=== PATIENT | male | born 1955 | race Caucasian/White ===

== ENCOUNTER → 2016-10-03 | Day surgery (SDC) | payer OTHER ==
[2016-10-01 10:13] VITALS: BMI 27.3
[~2016-10-03] MED LIST: ALPRAZolam 0.25 MG TAB ONE; ALPRAZolam 0.25 MG TAB PO PRN; ASPIRIN 325 MG TAB PO ONE; ASPIRIN 81 MG CHEW ONE; IODIXANOL 320 MG/ML 100 ML INTRAARTER ONE; LIDOCAINE 2% INJ 20 MG/ML SQ ONE; MIDAZOLAM 2 MG/2 ML VIAL IVP ONE; SODIUM CHLORIDE 0.9% 1,000 ML IV SCH; SODIUM CHLORIDE 0.9% 1,000 ML in EMPTY BAG 1 BAG IV ONE
[2016-10-03 08:26] LABS: Anisocytosis Slight; Basophils # (A) 0.1 k/uL (0-0.2); Basophils % (A) 1 %; CH 27.4; Eosinophils # (A) 0.3 k/uL (0-0.7); Eosinophils % (A) 3 %; HCT 46.3 % (39.0-53.0); HDW 2.87; HGB 15.1 gm/dL (13.0-17.5); Luc # (Auto) 0.12; Luc % (Auto) 2; Lymphocytes # (A) 2.5 k/uL (1.0-4.8); Lymphocytes % (A) 32 %; MCH 27.2 pg (25.0-35.0); MCHC 32.7 g/dL (31.0-37.0); MCV 83.4 fL (80.0-100.0); Mean Platelet Volume 7.4; Monocytes # (A) 0.4 k/uL (0-1.0); Monocytes % (A) 5 %; Neutrophils # (A) 4.5 k/uL (1.3-7.7); Neutrophils % (A) 57 %; RBC 5.56 m/uL (4.30-5.90); RDW 17.6 % (11.5-15.5); WBC 7.8 k/uL (3.8-10.6); WBC (Perox) 7.98
[2016-10-03 08:29] VITALS: RESP 18
[2016-10-03 09:34] LABS: Anion Gap 7 mmol/L; Blood Urea Nitrogen 21 mg/dL (9-20); Calcium 8.9 mg/dL (8.4-10.2); Carbon Dioxide 29 mmol/L (22-30); Chloride 107 mmol/L (98-107); Glucose 100 mg/dL (74-99); Non-African American GFR(MDRD) >60 (>60 ml/min/1.73 sqM); Potassium 3.9 mmol/L (3.5-5.1); Sodium 143 mmol/L (137-145)
[2016-10-03] MEDS: VERAPAMIL SYRINGE (5 MG/10 ML) INTRAARTER ONE ×2 (10:18→10:32)
--- NOTE | 2016-10-03 11:44 | IR ---
Fluoroscopy HISTORY: Pain 2.2 minutes fluoroscopy time supplied to the referring clinician. 136 intraoperative C-arm images do cument the procedure. See dictated report from cardiology.
[2016-10-03 12:30] VITALS: TEMP 98
[2016-10-03 15:36] VITALS: PULSE 64
[2016-10-03 16:30] VITALS: BP 124/75
--- NOTE | 2016-10-04 10:30 | PCN ---
DATE OF PROCEDURE: 10/03/2016 Performing physician: Aleksandr Roberts M.D., coding technician. PROCEDURE PERFORMED: 1. An abdominal aortogram. 2. Right lower extremity runoff. INDICATION: This is a pleasant 60-year-old gentleman who sees Dr. Tyson as an outpatient, who is known to have severe underlying PAD who underwent multiple angioplasty in the past. He was experiencing critical limb ischemia with resting pain of the right leg. He is known to have left [id number] amputation secondary to severe peripheral arterial disease. I was asked to perform the peripheral angiogram by Dr. Tyson. Approach: Right radial artery. COMPLICATIONS: None. Level of sedation: Moderate. PROCEDURE DESCRIPTION: After obtaining an informed consent, the patient was brought to the cardiac cardiac cath lab manager. Right radial artery was cannulated using micropuncture technique. The micropuncture wire passed easily, then I placed 6 Welsh sheath in the right radial artery. Subsequently, I did give the patient 2 mg of verapamil IA and 3000 units of heparin IV. After that, I did an abdominal aortogram and right lower extremity runoff using 5 Welsh pigtail catheter which was initially placed at the level of the renal arteries and it was advanced into above the bifurcation of the aorta to right and left common iliac arteries. The procedure was completed without any complication. SELECTIVE PERIPHERAL ANGIOGRAM: 1. The abdominal aorta appeared to have mild disease only. 2. The common iliac arteries: Right common iliac artery appeared to be aneurysmal with severe disease about 70% to 80%. The left common iliac artery appeared to be angiographically normal. 3. The external arteries: The right external iliac artery appeared to have mild disease only and the left external iliac artery appeared to have mild disease only as well. 4. The internal iliac arteries: The right and left internal iliac arteries seems to be patent. 5. Common femoral arteries: The right common femoral artery appeared to have mild disease only and the left common femoral artery appeared to be occluded. 6. SFA: The right SFA seems to have severe lesion in the midportion. Then the right SFA is totally occluded distally by the canal jinny on a short segment. 7. Popliteal: The right popliteal appeared to have mild to moderate diffuse disease. 8. Below the knee: There are 3 vessels runoff below the knee bilaterally. CONCLUSION: 1. Critical limb ischemia involving the right leg. 2. Known left pvbig-hjd-[id number] amputation secondary to severe underlying peripheral arterial disease. 3. Critical disease involving the ostial right common iliac artery with aneurysmal formation there as well. 4. Total occlusion of the distal right superficial femoral artery on a short segment. 5. Three vessel runoff below the knee on the right side. POSTPROCEDURE MANAGEMENT: The patient will be scheduled to undergo balloon angioplasty and stenting of the right iliac as well as balloon angioplasty of the right SFA.
== END ==
LOC: CATHCVL 07:57
PROVIDERS: ATTEND Internal Medicine Interventional Cardiology
DX: I73.9 Peripheral vascular disease, unspecified (principal); I70.92 Chronic total occlusion of artery of the extremities; I99.8 Other disorder of circulatory system; I72.3 Aneurysm of iliac artery; Z89.512 Acquired absence of left leg below knee; L97.519 Non-pressure chronic ulcer of other part of right foot with unspecified severity; Z82.49 Family history of ischemic heart disease and other diseases of the circulatory system; F17.210 Nicotine dependence, cigarettes, uncomplicated; Z79.1 Long term (current) use of non-steroidal anti-inflammatories (NSAID); Z79.82 Long term (current) use of aspirin; Z79.891 Long term (current) use of opiate analgesic; Z79.899 Other long term (current) drug therapy
CPT/HCPCS: 36200; 75625; 75716; 80048; 85025; 99156; C1769 ×2; C1894; J2001; J2250; Q9967

== ENCOUNTER 2016-10-17 06:29 | Day surgery (SDC) | payer OTHER ==
[~2016-10-17 06:29] MED LIST changes: -ALPRAZolam 0.25 MG TAB ONE; -ALPRAZolam 0.25 MG TAB PO PRN; -ASPIRIN 325 MG TAB PO ONE; +ASPIRIN 325 MG TAB PO SCH; -ASPIRIN 81 MG CHEW ONE; -IODIXANOL 320 MG/ML 100 ML INTRAARTER ONE; -LIDOCAINE 2% INJ 20 MG/ML SQ ONE; -MIDAZOLAM 2 MG/2 ML VIAL IVP ONE; -SODIUM CHLORIDE 0.9% 1,000 ML IV SCH
[2016-10-17] MEDS ORDERED: ALPRAZolam 0.25 MG TAB PO STA (07:09)
[2016-10-17] MEDS ORDERED: SODIUM CHLORIDE 0.9% 1,000 ML IV ONE (07:22)
[2016-10-17] MEDS ORDERED: MIDAZOLAM 2 MG/2 ML VIAL IV ONE ×3 (08:25→09:21)
[2016-10-17] MEDS ORDERED: LIDOCAINE 2% INJ 20 MG/ML SQ ONE ×2 (08:34)
[2016-10-17] MEDS ORDERED: HYDROmorphone 2 MG/ML 1 ML SYRINGE IV ONE (08:39)
[2016-10-17] MEDS ORDERED: HEPARIN SODIUM 1,000 UNIT/ML VIAL IV ONE ×2 (08:53→08:55)
[2016-10-17] MEDS: NITROGLYCERIN 1000MCG/10ML SYRINGE INTRAARTER ONE ×3 (09:27→10:05)
[2016-10-17] MEDS: niCARdipine Syringe (1,000 mcg/10 mL) INTRACORON ONE ×2 (09:28→10:04)
[2016-10-17] MEDS ORDERED: CLOPIDOGREL 75 MG TAB PO ONE (09:43)
[2016-10-17] MEDS ORDERED: IODIXANOL 320 MG/ML 100 ML INTRAARTER ONE (10:07)
[2016-10-17] MEDS ORDERED: IBUPROFEN 800 MG TAB PO PRN (10:21)
[2016-10-17] MEDS ORDERED: methylPREDNISolone 4 MG TAB TAPER PO SCH (10:30)
[2016-10-17] MEDS ORDERED: SODIUM CHLORIDE 0.9% 1,000 ML IV SCH (10:30)
[2016-10-17] MEDS: MORPHINE SULFATE IR 15 MG TABLET PO PRN ×2 (11:10→18:57)
[2016-10-17] MEDS ORDERED: MORPHINE SULFATE ER 30 MG TABLET PO STA (16:07)
[2016-10-17 18:21] VITALS: BMI 30.7
[2016-10-17] MEDS: GABAPENTIN 400 MG CAP PO SCH (20:43)
--- NOTE | 2016-10-17 20:46 | PCN ---
DATE OF PROCEDURE: October 17, 2016. PERFORMING PHYSICIAN: Aleksandr Roberts M.D., frame table operator helper. PROCEDURE PERFORMED: 1. Selective right [id number]-[id number] angiogram. 2. Selective right popliteal angiogram. 3. Selective right SFA angiogram. 4. An atherectomy of the right superficial femoral artery using the TurboHawk device with extraction of large plaque burden. 5. Successful stenting of the distal right SFA using 6.0 x 120 mm ( ) PTX drug-coated stent with a good angiographic results. 6. Successful balloon angioplasty of the proximal SFA using 6.0 x 80 mm drug-coated balloon with good angiographic results. INDICATION: This is a pleasant 60-year-old gentleman who was seen and evaluated by Dr. Tyson for what seems to be critical limb ischemia and resting pain involving the right foot. He underwent a peripheral angiogram a few weeks ago and that showed occluded right distal SFA with severe disease involving the proximal right SFA and severe disease involving the right iliac artery. He was brought today to undergo balloon angioplasty of the right SFA. APPROACH: Right common femoral artery in antegrade fashion. COMPLICATIONS: None. Level of sedation: Moderate. PROCEDURE DESCRIPTION: After obtaining informed consent, the patient was brought to the cardiac construction laborer. The right common femoral artery was cannulated using micropuncture technique under ultrasound guidance. The micropuncture wire was positioned towards the right profunda. At that point, I put a 6 Uzbek sheath in the right common femoral artery. Then I did advance an 0.018 Victory 18 wire toward the right SFA and after that, I did exchange my 018 wire into 0.035 wire using an 0.035 QuickCross catheter. Then I directed my sheath towards the right SFA. At that point, anticoagulation was initiated using heparin and the patient was given 8000 units of heparin IV. Subsequently, I did selective right SFA angiogram. I did selective right popliteal angiogram as well. Subsequently, I did cross the chronic total occlusion of the right SFA using an 0.014 Astato wire with the back-up support of 0.014 CXI catheter. I did prove that I was in the true lumen by injecting contrast in the right popliteal. At that point, I did advance 014 Ironman through the 0.014 CXI catheter. I did multiple runs of directional atherectomy using the TurboHawk hock device and I was able to extract large plaque burden. After that, I did balloon the right SFA using 40 x 150 mm balloon which was inflated under 12 atmospheres for one minute. After that, I did stent the right distal SFA using 6.0 x 120 mm ( ) PTX stent, where the stent was positioned under fluoroscopy guidance and it was deployed. After that, I did balloon angioplasty on the mid right SFA just proximal to stent using 5.0 x 150 mm balloon which was inflated under its nominal pressure where I did inflate the balloon inside the stent and proximal to the stented segment. The following angiogram showed good angiographic results. For the lesion in the proximal right SFA, I did again atherectomy using the TurboHawk hock device. Then I did inflate 6.0 x 80 mm drug-coated balloon, where the balloon was inflated under its nominal pressure for 3 minutes. The following angiogram showed good angiographic results. I did selective right below the knee angiogram just to make sure there is 3 vessel runoff and no distal embolization. POSTPROCEDURE MANAGEMENT: 1. Dual antiplatelet therapy. 2. Risk factor modifications. 3. Follow up with the patient.
[2016-10-17] MEDS ORDERED: MORPHINE SULFATE ER 30 MG TABLET PO SCH (21:00)
[2016-10-17] MEDS ORDERED: ATORVASTATIN 80 MG TAB PO SCH (21:00)
[2016-10-17] MEDS: LORazepam 1 MG TAB PO PRN (23:24)
[2016-10-18] MEDS: MORPHINE SULFATE IR 15 MG TABLET PO PRN ×2 (01:05→06:36)
[2016-10-18] MEDS: GABAPENTIN 400 MG CAP PO SCH ×2 (04:05→07:59)
[2016-10-18 07:10] LABS: Anisocytosis Slight; Basophils # (A) 0.1 k/uL (0-0.2); Basophils % (A) 1 %; CH 27.4; CHCM 31.8; Eosinophils # (A) 0.2 k/uL (0-0.7); Eosinophils % (A) 3 %; HCT 45.7 % (39.0-53.0); HGB 14.3 gm/dL (13.0-17.5); Hypochromasia Slight; Luc # (Auto) 0.08; Luc % (Auto) 1; Lymphocytes # (A) 1.2 k/uL (1.0-4.8); Lymphocytes % (A) 20 %; MCH 27.1 pg (25.0-35.0); MCHC 31.3 g/dL (31.0-37.0); MCV 86.6 fL (80.0-100.0); Mean Platelet Volume 8.8; Monocytes # (A) 0.4 k/uL (0-1.0); Monocytes % (A) 7 %; Neutrophils # (A) 3.9 k/uL (1.3-7.7); Neutrophils % (A) 68 %; RBC 5.27 m/uL (4.30-5.90); RDW 16.9 % (11.5-15.5); WBC 5.8 k/uL (3.8-10.6); WBC (Perox) 5.82
[2016-10-18 07:14] LABS: Anion Gap 8 mmol/L; Blood Urea Nitrogen 14 mg/dL (9-20); Calcium 8.8 mg/dL (8.4-10.2); Carbon Dioxide 28 mmol/L (22-30); Chloride 106 mmol/L (98-107); Glucose 86 mg/dL (74-99); Non-African American GFR(MDRD) >60 (>60 ml/min/1.73 sqM); Potassium 4.4 mmol/L (3.5-5.1); Sodium 142 mmol/L (137-145)
[2016-10-18 07:53] VITALS: BP 115/76; PULSE 71; RESP 20; TEMP 97.7
[2016-10-18] MEDS: LORazepam 1 MG TAB PO PRN (08:07)
[2016-10-18] MEDS ORDERED: NON-FORMULARY DRUG (Vortioxetine Hydrobromide [Trintellix] 10 MG) PO SCH (09:00)
[2016-10-18] MEDS ORDERED: MORPHINE SULFATE ER 30 MG TABLET PO SCH (09:00)
[2016-10-18] MEDS ORDERED: ASPIRIN 81 MG CHEW PO SCH (09:00)
[2016-10-18] MEDS ORDERED: CLOPIDOGREL 75 MG TAB PO SCH (09:00)
--- NOTE | 2016-10-18 18:55 | DS ---
DATE OF ADMISSION: 10/17/2016 DATE OF DISCHARGE: 10/18/2016 BRIEF HISTORY: This is a pleasant 60-year-old gentleman who was admitted to the hospital yesterday and underwent successful crossing chronic total occlusion of the right superficial femoral artery along with successful balloon angioplasty and stenting of the right SFA with a good angiographic result and without any complication. The procedure was performed from the right groin in antegrade technique. The right groin is soft and nontender and without any bruises. The patient is going to be discharged home on dual antiplatelet therapy as well as on statin. I will follow up with the patient early next week in the office, where he requires to have stenting of the right iliac arteries.
--- NOTE | 2016-10-20 12:30 | IR ---
EXAMINATION TYPE: IR stent intravas non coronary DATE OF EXAM: 10/17/2016 11:32 AM COMPARISON: NONE HISTORY: Peripheral vascular occlusive disease. Fluoroscopy was applied to the referring clinician. See dictated report from cardiology.
== END 2016-10-18 11:21 | disposition home or self-care (01) ==
LOC: CATHCVL 06:29 → 6SEL 17:23 → CATHCVL 10-18 11:21
PROVIDERS: ATTEND Internal Medicine Interventional Cardiology
DX: I70.235 Atherosclerosis of native arteries of right leg with ulceration of other part of foot (principal); I70.92 Chronic total occlusion of artery of the extremities; E66.3 Overweight; Z68.27 Body mass index [BMI] 27.0-27.9, adult; F17.210 Nicotine dependence, cigarettes, uncomplicated; Z89.612 Acquired absence of left leg above knee; Z79.1 Long term (current) use of non-steroidal anti-inflammatories (NSAID); Z79.82 Long term (current) use of aspirin; Z79.899 Other long term (current) drug therapy; Z82.49 Family history of ischemic heart disease and other diseases of the circulatory system
CPT/HCPCS: 99156; 99157 ×5; 37227; 85347; 80048; 85025; C1894 ×3; C1769 ×8; C1887; C1725 ×2; C1714; C2623; C1874; J2001; J2250; J1170; Q9967; J1644; J7509

== ENCOUNTER → 2016-10-27 | Outpatient (CLI) | payer OTHER ==
--- NOTE | 2016-10-27 09:55 | MR ---
EXAMINATION TYPE: MR cervical spine wo con DATE OF EXAM: 10/27/2016 9:43 AM COMPARISON: NONE HISTORY: Cervicalgia, neck and shoulder pain TECHNIQUE: Multiplanar, multisequence images of the cervical spine were acquired. C2-C3: No evidence for degenerative disc disease. No disc bulge/herniation or protrusion. No Canal stenosis. Foramina are patent bilaterally. C3-C4: Facet arthropathy and uncovertebral joint hypertrophy. Mild bilateral foraminal stenosis. No C anal stenosis. C4-C5: Mild degenerative disc disease and bilateral uncovertebral joint hypertrophy with facet arthro robb. No disc herniation or canal stenosis. C5-C6: Severe degenerative disc disease with central disc herniation. There is bilateral uncovertebra l joint hypertrophy and moderate to severe bilateral foraminal encroachment and significant AP canal stenosis. C6-C7: Severe degenerative disc disease with broad-based disc protrusion, uncovertebral joint hypertr ophy hypertrophy with moderate canal stenosis and severe bilateral foraminal encroachment. C7-T1: No evidence for degenerative disc disease. No disc bulge/herniation or protrusion. No Canal stenosis. Foramina are patent bilaterally. Cervical segments are intact. There is normal alignment. Cervical spinal cord is of normal signal. Craniovertebral junction relationships are within normal limits. IMPRESSION: 1. Large central disc herniation with severe degenerative disc disease C5-C6 resulting in spinal cord compression and bilateral significant foraminal encroachment. 2. Severe degenerative disc disease C6-C7 with broad-based disc protrusion, severe bilateral foramina l encroachment and moderate canal stenosis.
== END | disposition home or self-care (01) ==
LOC: RADMRIMAIN 08:49
PROVIDERS: ATTEND Psychiatry & Neurology Neurology
DX: M48.02 Spinal stenosis, cervical region (principal); M50.222 Other cervical disc displacement at C5-C6 level; M50.322 Other cervical disc degeneration at C5-C6 level
CPT/HCPCS: 72141

== ENCOUNTER 2016-11-12 11:35 | Emergency (ER) | payer OTHER ==
[2016-11-12] MEDS ORDERED: SODIUM CHLORIDE 0.9% 1,000 ML IV STA (11:44)
--- NOTE | 2016-11-12 11:48 | ED ---
General Adult HPI - General Source: RN notes reviewed <Luca Pierson - Last Filed: 11/12/16 14:54> <Roney Roth - Last Filed: 11/12/16 22:43> - General Stated complaint: ETOH Time Seen by Provider: 11/12/16 11:35 - History of Present Illness Initial comments: This is a 61-year-old male who presents to the emergency department because his girlfriend called EMS because he had been drinking and he also had taken some Ativan and morphine he does not know how many. Patient states he was not suicidal he states he took them because he wanted to get some sleep. Patient states he does not know how many he took. Patient is alert and oriented 3 though he is obviously intoxicated. Patient denies any physical complaints today. Patient states he did fall earlier but did not hurt himself. Patient states he didn't hit his head did not hurt his neck and has no complaints from the fall. Patient denies any headache currently patient denies any numbness weakness. Patient denies chest pain palpitations difficulty breathing shortness of breath per patient denies abdominal pain patient denies nausea vomiting or diarrhea. (Luca Pierson) - Related Data Home Medications Medication Instructions Recorded Confirmed Aspirin 81 mg PO DAILY 09/18/16 11/12/16 Gabapentin 800 mg PO QID 09/18/16 11/12/16 LORazepam [Ativan] 1 mg PO BID PRN 09/18/16 11/12/16 Morphine Sulfate Ir [MSIR] 15 mg PO DAILY PRN 10/03/16 11/12/16 Morphine Sulfate [Ms Contin] 30 mg PO Q12HR 10/03/16 11/12/16 Vortioxetine Hydrobromide 10 mg PO DAILY 10/13/16 11/12/16 [Trintellix] PARoxetine [Paxil] 20 mg PO DAILY 11/12/16 11/12/16 Previous Rx's Medication Instructions Recorded Atorvastatin [Lipitor] 80 mg PO HS #90 tab 10/18/16 Clopidogrel [Plavix] 75 mg PO DAILY #90 tab 10/18/16 Allergies Allergy/AdvReac Type Severity Reaction Status Date / Time No Known Allergies Allergy Verified 11/11/16 10:05 Review of Systems ROS Other: All systems not noted in ROS Statement are negative. <Luca Pierson - Last Filed: 11/12/16 14:54> ROS Other: All systems not noted in ROS Statement are negative. <Roney Roth - Last Filed: 11/12/16 22:43> ROS Statement: Those systems with pertinent positive or pertinent negative responses have been documented in the HPI. Past Medical History Past Medical History: Chest Pain / Angina, Deep Vein Thrombosis (DVT), Eye Disorder, GI Bleed, Hypertension, Pulmonary Embolus (PE), Skin Disorder, Vascular Disorder Additional Past Medical History / Comment(s): HX OF CHEST PAIN X1 R/T ANXIETY ATTACK. "HX BLOOD CLOT RT SHOULDER." HX GASTRIC ULCERS. C6-7 "SQUEEZED TOGETHER." LESION ON FOREHEAD. PE 02/2016. LT LEG ABOVE KNEE AMPUTATION, STILL HAS WOUND HEALING, PAIN IN LEFT STUMP; RT FOOT N/T. USES WHEELCHAIR TO AMBULATE History of Any Multi-Drug Resistant Organisms: MRSA Date of last positivie culture/infection: 2015 MDRO Source:: LEFT LEG WOUND Additional Past Surgical History / Comment(s): LT LEG BYPASS 09/2015; LT LEG ABOVE KNEE AMPUTATION 01/2016; SEVERAL DEBRIDEMENTS. Facial Surgery. RIGHT SFA ANGIOPLASTY WITH STENT 10/17/16 Past Anesthesia/Blood Transfusion Reactions: No Reported Reaction Past Psychological History: Anxiety, Depression, Panic Disorder Additional Psychological History / Comment(s): "SITUATIONAL" DEPRESSION. "GETS PANICKY WHEN OUT OF HOUSE." Smoking Status: Current every day smoker Past Alcohol Use History: None Reported, Rare Additional Past Alcohol Use History / Comment(s): SMOKES 1 1/2 PPD, X45 YEARS. Past Drug Use History: None Reported - Past Family History Mother Family Medical History: Cancer Additional Family Medical History / Comment(s): POSS CA, HAD HYSTERECTOMY, UNSURE D/T HER SCHIZOPHRENIA. <Luca Pierson - Last Filed: 11/12/16 14:54> General Exam <Luca Pierson - Last Filed: 11/12/16 14:54> <Roney Roth - Last Filed: 11/12/16 22:43> - General Exam Comments Initial Comments: GENERAL: Patient is well-developed and well-nourished. Patient is nontoxic and well- hydrated and is in mild distress. ENT: Neck is soft and supple. No significant lymphadenopathy is noted. Oropharynx is clear. Moist mucous membranes. Neck has full range of motion without eliciting any pain. EYES: The sclera were anicteric and conjunctiva were pink and moist. Extraocular movements were intact and pupils were equal round and reactive to light. Eyelids were unremarkable. PULMONARY: Unlabored respirations. Good breath sounds bilaterally. No audible rales rhonchi or wheezing was noted. CARDIOVASCULAR: There is a regular rate and rhythm without any murmurs gallops or rubs. ABDOMEN: Soft and nontender with normal bowel sounds. No palpable organomegaly was noted. There is no palpable pulsatile mass. SKIN: Skin is clear with no lesions or rashes and otherwise unremarkable. NEUROLOGIC: Patient is alert and oriented x3. Cranial nerves II through XII are grossly intact. Motor and sensory are also intact. Normal speech, volume and content. Symmetrical smile. 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 Normal extremities with adequate strength and full range of motion. No lower extremity swelling or edema. No calf tenderness. LYMPHATICS: No significant lymphadenopathy is noted PSYCHIATRIC: Patient is intoxicated but does deny suicidal ideations. (Luca Pierson) Medical Decision Making - Lab Data Result diagrams: 11/12/16 12:09 11/12/16 12:09 <Luca Pierson - Last Filed: 11/12/16 14:54> - Lab Data Result diagrams: 11/12/16 12:09 11/12/16 12:09 <Roney Roth - Last Filed: 11/12/16 22:43> - Medical Decision Making EKG shows normal sinus rhythm at 80 bpm WV interval is 148 QRS is 110 QT interval 422 QTC is 486. Patient's EKG shows T-wave inversions in leads [address] Pierce take over the care of this patient 5 PM (Luca Pierson) - Lab Data Lab Results 11/12/16 11/12/16 Range/Units 12:09 12:09 WBC 7.2 (3.8-10.6) k/uL RBC 5.85 (4.30-5.90) m/uL Hgb 16.0 (13.0-17.5) gm/dL Hct 49.6 (39.0-53.0) % MCV 84.8 (80.0-100.0) fL MCH 27.4 (25.0-35.0) pg MCHC 32.3 (31.0-37.0) g/dL RDW 16.6 H (11.5-15.5) % Plt Count 282 (150-450) k/uL Neutrophils % 59 % Lymphocytes % 32 % Monocytes % 4 % Eosinophils % 2 % Basophils % 1 % Neutrophils # 4.3 (1.3-7.7) k/uL Lymphocytes # 2.3 (1.0-4.8) k/uL Monocytes # 0.3 (0-1.0) k/uL Eosinophils # 0.2 (0-0.7) k/uL Basophils # 0.1 (0-0.2) k/uL Hypochromasia Slight Anisocytosis Slight Sodium 149 H (137-145) mmol/L Potassium 3.5 (3.5-5.1) mmol/L Chloride 110 H (98-107) mmol/L Carbon Dioxide 23 (22-30) mmol/L Anion Gap 16 mmol/L BUN 6 L (9-20) mg/dL Creatinine 0.52 L (0.66-1.25) mg/dL Est GFR (MDRD) Af Amer >60 (>60 ml/min/1.73 sqM) Est GFR (MDRD) Non-Af >60 (>60 ml/min/1.73 sqM) Glucose 86 (74-99) mg/dL Calcium 9.0 (8.4-10.2) mg/dL Total Bilirubin 0.8 (0.2-1.3) mg/dL AST 23 (17-59) U/L ALT 26 (21-72) U/L Alkaline Phosphatase 168 H (38-126) U/L Total Protein 7.3 (6.3-8.2) g/dL Albumin 3.9 (3.5-5.0) g/dL Salicylates <1.0 mg/dL Acetaminophen <10.0 ug/mL Serum Alcohol 243 mg/dL Disposition <Luca Pierson - Last Filed: 11/12/16 14:54> <Roney Roth - Last Filed: 11/12/16 22:43> Clinical Impression: Alcoholic intoxication Disposition: HOME SELF-CARE Condition: Fair Instructions: Alcohol Intoxication (ED) Additional Instructions: Do not drink any alcohol while taking your prescription medications, this combination can be very dangerous, leading to possible permanent disability or . Referrals: Ayden Rosenthal MD [Primary Care Provider] - 1-2 days
[2016-11-12 12:28] LABS: Anisocytosis Slight; Basophils # (A) 0.1 k/uL (0-0.2); Basophils % (A) 1 %; CH 27.6; CHCM 32.8; Eosinophils # (A) 0.2 k/uL (0-0.7); Eosinophils % (A) 2 %; HCT 49.6 % (39.0-53.0); HDW 3.24; Hypochromasia Slight; Luc # (Auto) 0.13; Luc % (Auto) 2; Lymphocytes # (A) 2.3 k/uL (1.0-4.8); Lymphocytes % (A) 32 %; MCH 27.4 pg (25.0-35.0); MCHC 32.3 g/dL (31.0-37.0); MCV 84.8 fL (80.0-100.0); Mean Platelet Volume 7.8; Monocytes # (A) 0.3 k/uL (0-1.0); Monocytes % (A) 4 %; Neutrophils # (A) 4.3 k/uL (1.3-7.7); Neutrophils % (A) 59 %; RBC 5.85 m/uL (4.30-5.90); RDW 16.6 % (11.5-15.5); WBC 7.2 k/uL (3.8-10.6); WBC (Perox) 7.25
[2016-11-12 12:32] LABS: ALT 26 U/L (21-72); AST 23 U/L (17-59); Acetaminophen <10.0 ug/mL; Alkaline Phosphatase 168 U/L (38-126); Anion Gap 16 mmol/L; Blood Urea Nitrogen 6 mg/dL (9-20); Carbon Dioxide 23 mmol/L (22-30); Chloride 110 mmol/L (98-107); Glucose 86 mg/dL (74-99); Non-African American GFR(MDRD) >60 (>60 ml/min/1.73 sqM); Potassium 3.5 mmol/L (3.5-5.1); Salicylate <1.0 mg/dL; Sodium 149 mmol/L (137-145); Total Bilirubin 0.8 mg/dL (0.2-1.3); Total Protein 7.3 g/dL (6.3-8.2)
[2016-11-12 12:37] LABS: Alcohol 243 mg/dL
[2016-11-12] MEDS ORDERED: LORazepam 2 MG/ML SYRINGE IV STA (13:48)
[2016-11-12] MEDS ORDERED: KETOROLAC 30 MG/ML 1 ML VIAL IVP STA (15:25)
[2016-11-12 22:34] VITALS: RESP 18
[2016-11-12] MEDS ORDERED: HYDROcodone/APAP 5-325MG 1 EACH TAB PO STA (22:35)
[2016-11-13 00:31] VITALS: BP 164/93; PULSE 82; TEMP 98.2
== END 2016-11-13 00:15 | disposition home or self-care (01) ==
LOC: EC 11:35
DX: F10.129 Alcohol abuse with intoxication, unspecified (principal); Z79.82 Long term (current) use of aspirin; Z79.899 Other long term (current) drug therapy; Z79.02 Long term (current) use of antithrombotics/antiplatelets; Z86.718 Personal history of other venous thrombosis and embolism; F41.9 Anxiety disorder, unspecified; F32.9 Major depressive disorder, single episode, unspecified; F41.0 Panic disorder [episodic paroxysmal anxiety]; F17.200 Nicotine dependence, unspecified, uncomplicated; Z86.711 Personal history of pulmonary embolism
CPT/HCPCS: 82075; 36415; 93005; 80053; 85025; 83520 ×2; 80320; 96374; 96361 ×6; 99284; J1885

== ENCOUNTER 2017-01-28 12:43 | Day surgery (SDC) | payer OTHER ==
[2017-01-27 08:38] VITALS: BMI 27.6
[~2017-01-28 12:43] MED LIST changes: +ALPRAZolam 0.25 MG TAB PO PRN; +ALPRAZolam 0.5 MG TAB PO PRN; -ASPIRIN 325 MG TAB PO SCH; +ASPIRIN 325 MG TAB PO STA
[2017-01-28] MEDS ORDERED: ALPRAZolam 0.25 MG TAB ONE (13:32)
[2017-01-28] MEDS ORDERED: ASPIRIN 81 MG CHEW ONE (13:32)
[2017-01-28] MEDS ORDERED: CLOPIDOGREL 75 MG TAB ONE (13:35)
[2017-01-28] MEDS ORDERED: SODIUM CHLORIDE 0.9% 1,000 ML IV ONE (13:45)
[2017-01-28 13:57] LABS: Anion Gap 14 mmol/L; Blood Urea Nitrogen 16 mg/dL (9-20); Carbon Dioxide 19 mmol/L (22-30); Chloride 110 mmol/L (98-107); Glucose 94 mg/dL (74-99); Non-African American GFR(MDRD) >60 (>60 ml/min/1.73 sqM); Potassium 5.2 mmol/L (3.5-5.1); Sodium 143 mmol/L (137-145)
[2017-01-28 13:58] LABS: Anisocytosis Slight; Basophils # (A) 0.1 k/uL (0-0.2); Basophils % (A) 1 %; CH 28.1; CHCM 33.1; Eosinophils # (A) 0.2 k/uL (0-0.7); Eosinophils % (A) 2 %; HCT 51.6 % (39.0-53.0); HDW 2.91; Luc # (Auto) 0.16; Luc % (Auto) 2; Lymphocytes # (A) 2.7 k/uL (1.0-4.8); Lymphocytes % (A) 29 %; MCH 28.1 pg (25.0-35.0); MCHC 32.9 g/dL (31.0-37.0); MCV 85.3 fL (80.0-100.0); Mean Platelet Volume 8.2; Monocytes # (A) 0.5 k/uL (0-1.0); Monocytes % (A) 5 %; Neutrophils # (A) 5.8 k/uL (1.3-7.7); Neutrophils % (A) 61 %; RBC 6.05 m/uL (4.30-5.90); WBC 9.5 k/uL (3.8-10.6); WBC (Perox) 9.62
[2017-01-28] MEDS ORDERED: HYDROmorphone 1 MG/ML 1 ML SYRINGE IVP STA ×2 (15:29→21:55)
[2017-01-28] MEDS ORDERED: HYDROmorphone 1 MG/ML 1 ML SYRINGE ONE (15:31)
[2017-01-28] MEDS ORDERED: niCARdipine 25 MG/10 ML VIAL ONE (18:33)
[2017-01-28] MEDS: MIDAZOLAM 2 MG/2 ML VIAL IVP ONE ×2 (18:39→18:51)
[2017-01-28] MEDS ORDERED: fentaNYL (PF) 50 MCG/ML 2 ML AMP IV ONE (18:39)
[2017-01-28] MEDS ORDERED: LIDOCAINE 2% INJ 20 MG/ML SQ ONE (18:40)
[2017-01-28] MEDS ORDERED: HEPARIN SODIUM 1,000 UNIT/ML VIAL IV ONE (18:46)
[2017-01-28] MEDS ORDERED: IODIXANOL 320 MG/ML 100 ML INTRAARTER ONE (19:09)
[2017-01-28] MEDS ORDERED: SODIUM CHLORIDE 0.9% 1,000 ML IV SCH (19:15)
[2017-01-28 20:02] VITALS: RESP 18
--- NOTE | 2017-01-28 20:38 | PCN ---
DATE OF PROCEDURE: January 28, 2017 Performing physician: Aleksandr Roberts M.D., tea leaf reader. PROCEDURE PERFORMED: 1. Selective right common iliac artery angiogram. 2. Selective right common femoral artery angiogram. 3. Successful stenting of the right common iliac artery using 9.0 by 59 mm iCAST covered stent with a good angiographic results. INDICATION: This is a pleasant 61-year-old gentleman who is known to have CAD and known severe disease and aneurysmal right common iliac artery. He was brought today to undergo stenting of that lesion. Approach: Right common femoral artery. COMPLICATIONS: None. Level of sedation: Moderate with a sedation length of ( ) minutes. PROCEDURE DESCRIPTION: After obtaining an informed consent, the patient was brought to the cardiac lab aide. Right common femoral artery was cannulated using micropuncture technique. The micropuncture wire passed easily, then I placed initially a 6 Guamanian 23 cm Brite tip sheath in the right common femoral artery. Subsequently and after I did multiple selective images of the right common iliac artery I decided to upgrade to 7 Guamanian preparing to use a covered stent. Anticoagulation was initiated using heparin and the patient was given a total of 8000 units of heparin IV. After that, I did exchange my 23 cm Brite tip 6 Guamanian sheath into 23 cm Brite tip 7 Guamanian sheath over the advantage wire. Subsequently, I did direct stenting on the lesion using a 9.0 x 59 mm iCAST covered stent, where the stent was positioned under fluoroscopy guidance and deployed under 12 atmospheres for 20 seconds. The following angiogram showed good angiographic results with good isolation of the aneurysm and no flow to the aneurysm. The procedure was completed without any complication. POSTPROCEDURE MANAGEMENT: 1. Dual antiplatelet therapy. 2. Risk factor modifications. 3. Follow up with the patient.
--- NOTE | 2017-01-28 20:49 | LTR ---
January 28, 2017 RE: Nav Ledbetter Dear Ayden: Mr. Nav Ledbetter underwent successful stenting of the right common iliac artery with a good angiographic result and without any complication. I want to thank you for allowing us to participate in his care. Please do not hesitate to call if you have any questions or concerns. Sincerely, ALEXIA MARTELL MD
[2017-01-28] MEDS: LORazepam 1 MG TAB PO SCH (21:42)
[2017-01-28] MEDS: GABAPENTIN 400 MG CAP PO SCH (21:43)
[2017-01-28] MEDS: IBUPROFEN 800 MG TAB PO SCH (21:43)
[2017-01-28] MEDS ORDERED: ATROPINE SULFATE 0.1 MG/ML 10ML SYRINGE ONE (22:20)
[2017-01-29 06:45] LABS: Non-African American GFR(MDRD) >60 (>60 ml/min/1.73 sqM)
[2017-01-29] MEDS: GABAPENTIN 400 MG CAP PO SCH (08:16)
[2017-01-29] MEDS: IBUPROFEN 800 MG TAB PO SCH (08:17)
[2017-01-29] MEDS: LORazepam 1 MG TAB PO SCH (08:27)
[2017-01-29] MEDS ORDERED: VILAZODONE HYDROCHLORIDE 20 MG PO SCH (09:00)
[2017-01-29] MEDS ORDERED: ATORVASTATIN 40 MG TAB PO SCH (09:00)
[2017-01-29] MEDS ORDERED: CLOPIDOGREL 75 MG TAB PO SCH (09:00)
[2017-01-29] MEDS ORDERED: ASPIRIN 81 MG CHEW PO SCH (09:00)
--- NOTE | 2017-01-29 09:07 | DS ---
DATE OF ADMISSION: 01/28/2017 DATE OF DISCHARGE: 01/29/2017 BRIEF HISTORY: This is a pleasant 61-year-old gentleman who was admitted to the hospital yesterday and underwent successful stenting of the right common iliac artery for severe disease involving the right common iliac artery as well as large aneurysm as well. I performed the procedure using iCAST covered stent with a good angiographic result and without any complication. The procedure was performed from the right groin which is soft and nontender. The patient is going to be discharged home on dual antiplatelet therapy and I will follow up with the patient in the office as an outpatient.
--- NOTE | 2017-01-29 09:36 | IR ---
EXAMINATION TYPE: IR stent intravas non coronary DATE OF EXAM: 01/28/2017 7:37 PM COMPARISON: NONE HISTORY: Peripheral vascular occlusive disease. Fluoroscopy was provided to the referring clinician. See dictated report from cardiology.
[2017-01-29 10:11] VITALS: BP 116/76; PULSE 68; TEMP 97.3
== END 2017-01-29 10:28 | disposition home or self-care (01) ==
LOC: CATHCVL 12:43 → 6SEL 19:10 → CATHCVL 01-29 10:28
PROVIDERS: ATTEND Internal Medicine Interventional Cardiology
DX: I99.8 Other disorder of circulatory system (principal); F17.210 Nicotine dependence, cigarettes, uncomplicated; Z82.49 Family history of ischemic heart disease and other diseases of the circulatory system; Z79.82 Long term (current) use of aspirin; Z79.891 Long term (current) use of opiate analgesic; Z79.02 Long term (current) use of antithrombotics/antiplatelets
CPT/HCPCS: 37221; 80048; 82565; 85025; C1894 ×2; C1874; C1769 ×3; J2001; J2250; Q9967; J3010; J1644; J1170

== ENCOUNTER 2017-04-30 16:01 | Observation (INO) | payer OTHER ==
[2017-04-30 17:14] LABS: Anisocytosis Slight; Basophils # (A) 0.1 k/uL (0-0.2); Basophils % (A) 2 %; CH 28.9; CHCM 33.6; Eosinophils # (A) 0.1 k/uL (0-0.7); Eosinophils % (A) 1 %; HCT 49.2 % (39.0-53.0); HDW 3.27; HGB 16.8 gm/dL (13.0-17.5); Luc # (Auto) 0.12; Luc % (Auto) 2; Lymphocytes # (A) 1.7 k/uL (1.0-4.8); Lymphocytes % (A) 31 %; MCH 29.6 pg (25.0-35.0); MCHC 34.2 g/dL (31.0-37.0); MCV 86.5 fL (80.0-100.0); Mean Platelet Volume 7.4; Monocytes # (A) 0.4 k/uL (0-1.0); Monocytes % (A) 6 %; Neutrophils # (A) 3.2 k/uL (1.3-7.7); Neutrophils % (A) 58 %; RBC 5.68 m/uL (4.30-5.90); RDW 18.8 % (11.5-15.5); WBC 5.5 k/uL (3.8-10.6); WBC (Perox) 5.18
[2017-04-30 17:18] LABS: Acetaminophen <10.0 ug/mL; Anion Gap 15 mmol/L; Blood Urea Nitrogen 7 mg/dL (9-20); Carbon Dioxide 24 mmol/L (22-30); Chloride 108 mmol/L (98-107); Glucose 77 mg/dL (74-99); Non-African American GFR(MDRD) >60 (>60 ml/min/1.73 sqM); Potassium 3.7 mmol/L (3.5-5.1); Salicylate <1.0 mg/dL; Sodium 147 mmol/L (137-145)
[2017-04-30 17:30] LABS: Alcohol 401 mg/dL
--- NOTE | 2017-04-30 17:40 | CT ---
EXAMINATION TYPE: CT brain yue [facility]ancock DATE OF EXAM: 04/30/2017 COMPARISON: NONE HISTORY: ETOH, fall from standing with neck pain. CT DLP: 1824.00 mGycm Automated exposure control for dose reduction was used. TECHNIQUE: CT scan of the head and cervical spine are performed without contrast. FINDINGS: There is mild cerebral cortical atrophy. There is no mass effect nor midline shift. There is no sign of intracranial hemorrhage. The calvarium is intact. Cervical vertebra have fairly normal alignment. There is a large posterior bridging osteophyte at C5- 6 encroaching on the spinal canal from the disc space. There is anterior spurring at C5-6 C6-7. There is no compression fracture. There is mild multilevel cervical hypertrophic facet arthropathy. The sk ull base appears intact. IMPRESSION: Cerebral atrophy. No acute intracranial abnormality. Spondylosis at C5-6 C6-7 the canal measures 8 mm at C5-6 due to the posterior spurring. No fracture. Old calcified posterior C5-6 cervical disc herniation.
--- NOTE | 2017-04-30 18:38 | ED ---
General Adult HPI - General Chief complaint: Psychiatric Symptoms Stated complaint: mental health Time Seen by Provider: 04/30/17 16:35 Source: patient, EMS Mode of arrival: EMS Limitations: no limitations - History of Present Illness Initial comments: This 61-year-old white male presents after he apparently had been drinking. He states that he fell over the last couple of days. He may have hit his head and complains of some neck pain. He appears intoxicated overall is a fairly poor historian. He states that he feels somewhat weak. He denies any other injuries. He denies any chest pain or shortness of breath. He states that he has been drinking at least a fifth of alcohol per day. He feels suicidal. He states that he's had a plan of cutting his wrists. No other complaints or modifying factors. He does present via EMS. - Related Data Home Medications Medication Instructions Recorded Confirmed Aspirin 81 mg PO DAILY 09/18/16 04/30/17 Gabapentin 800 mg PO QID 09/18/16 04/30/17 LORazepam [Ativan] 1 mg PO BID 09/18/16 04/30/17 Ibuprofen [Motrin] 800 mg PO QID 01/27/17 04/30/17 Vilazodone HCl [Viibryd] 20 mg PO DAILY 01/27/17 04/30/17 Previous Rx's Medication Instructions Recorded Clopidogrel [Plavix] 75 mg PO DAILY #90 tab 10/18/16 Atorvastatin [Lipitor] 40 mg PO DAILY #90 tab 01/29/17 Allergies Allergy/AdvReac Type Severity Reaction Status Date / Time No Known Allergies Allergy Verified 04/30/17 16:08 Review of Systems ROS Statement: Those systems with pertinent positive or pertinent negative responses have been documented in the HPI. ROS Other: All systems not noted in ROS Statement are negative. Past Medical History Past Medical History: Chest Pain / Angina, Deep Vein Thrombosis (DVT), Eye Disorder, GI Bleed, Hypertension, Pulmonary Embolus (PE), Skin Disorder, Vascular Disorder Additional Past Medical History / Comment(s): HX OF CHEST PAIN X1 R/T ANXIETY ATTACK. "HX BLOOD CLOT RT SHOULDER." HX GASTRIC ULCERS. C6-7 "SQUEEZED TOGETHER." LESION ON FOREHEAD. PE 02/2016. LT LEG ABOVE KNEE AMPUTATION, PAIN IN LEFT STUMP; RT FOOT N/T. USES WHEELCHAIR TO AMBULATE History of Any Multi-Drug Resistant Organisms: MRSA Date of last positivie culture/infection: 2015 MDRO Source:: LEFT LEG WOUND Additional Past Surgical History / Comment(s): LT LEG BYPASS 09/2015; LT LEG ABOVE KNEE AMPUTATION 01/2016; SEVERAL DEBRIDEMENTS. Facial Surgery. RIGHT SFA ANGIOPLASTY WITH STENT 10/17/16 Past Anesthesia/Blood Transfusion Reactions: No Reported Reaction Past Psychological History: Anxiety, Depression, Panic Disorder Smoking Status: Current every day smoker Past Alcohol Use History: Abuse, Daily, Heavy Past Drug Use History: None Reported - Past Family History Mother Family Medical History: Cancer Additional Family Medical History / Comment(s): POSS CA, HAD HYSTERECTOMY, UNSURE D/T HER SCHIZOPHRENIA. General Exam - General Exam Comments Initial Comments: GENERAL: The patient appears malnourished but well hydrated. VITAL SIGNS: Heart rate, blood pressure, respiratory rate reviewed as recorded in nurse's notes. EYES: Pupils are round and reactive. Extraocular movements are intact. No conjunctival / lid redness or swelling. ENT: No external evidence of injury, swelling, or ecchymosis. Airway is patent. Throat is clear. NECK: There is mild diffuse neck tenderness. No swelling or evidence of injury. No subcutaneous emphysema. Trachea is midline. No thyroid mass. HEART: Regular rate and rhythm. Good peripheral pulses. LUNGS/CHEST: Breath sounds clear and equal bilaterally. No rales, rhonchi, or wheezes. No ecchymosis, subcutaneous emphysema, or tenderness. ABDOMEN: Abdomen soft without tenderness. No palpable masses or organomegaly. No peritoneal signs. No abdominal wall swelling or ecchymosis. EXTREMITIES: No extremity tenderness. Normal muscle tone and function. No thoracolumbar tenderness. The patient has a left [id number] amputation. NEUROLOGIC: Sensation is grossly intact. Cranial nerve exam reveals face is symmetrical, tongue is midline, speech is slurred. Appears intoxicated. SKIN: No abrasions or ecchymosis is noted. No induration or masses noted. PSYCHIATRIC: Alert and in no distress. The patient appears to be intoxicated. Limitations: no limitations Course Vital Signs 04/30/17 04/30/17 16:08 17:56 Temperature 98.1 F Pulse Rate 93 89 Respiratory 20 20 Rate Blood Pressure 115/89 110/70 O2 Sat by Pulse 98 92 L Oximetry Medical Decision Making - Medical Decision Making The patient was seen and examined. All diagnostics were reviewed. The alcohol level came back at 401. The computed tomography scan of the brain and cervical spine does not show any acute processes. Laboratory is reviewed. It appears the patient is significantly intoxicated and will need admission to the hospital for further sobering. At this time, he does appear to be depressed and suicidal but also is significantly intoxicated. Is felt as though this would need to be reevaluated once he is sober. The case is discussed with his primary care physician and they're agreeable to admission. - Lab Data Result diagrams: 04/30/17 16:30 04/30/17 16:30 Lab Results 04/30/17 04/30/17 Range/Units 16:30 16:30 WBC 5.5 (3.8-10.6) k/uL RBC 5.68 (4.30-5.90) m/uL Hgb 16.8 (13.0-17.5) gm/dL Hct 49.2 (39.0-53.0) % MCV 86.5 (80.0-100.0) fL MCH 29.6 (25.0-35.0) pg MCHC 34.2 (31.0-37.0) g/dL RDW 18.8 H (11.5-15.5) % Plt Count 356 (150-450) k/uL Neutrophils % 58 % Lymphocytes % 31 % Monocytes % 6 % Eosinophils % 1 % Basophils % 2 % Neutrophils # 3.2 (1.3-7.7) k/uL Lymphocytes # 1.7 (1.0-4.8) k/uL Monocytes # 0.4 (0-1.0) k/uL Eosinophils # 0.1 (0-0.7) k/uL Basophils # 0.1 (0-0.2) k/uL Anisocytosis Slight Sodium 147 H (137-145) mmol/L Potassium 3.7 (3.5-5.1) mmol/L Chloride 108 H (98-107) mmol/L Carbon Dioxide 24 (22-30) mmol/L Anion Gap 15 mmol/L BUN 7 L (9-20) mg/dL Creatinine 0.52 L (0.66-1.25) mg/dL Est GFR (MDRD) Af Amer >60 (>60 ml/min/1.73 sqM) Est GFR (MDRD) Non-Af >60 (>60 ml/min/1.73 sqM) Glucose 77 (74-99) mg/dL Calcium 8.0 L (8.4-10.2) mg/dL Salicylates <1.0 mg/dL Acetaminophen <10.0 ug/mL Serum Alcohol 401 mg/dL Disposition Clinical Impression: Depression, Suicidal ideation, Alcohol intoxication, Head injury, Cervical sprain, Hypernatremia Disposition: ADMITTED IP TO THIS HOSP Condition: Fair Referrals: Ayden Rosenthal MD [Primary Care Provider] - 1-2 days Time of Disposition: 18:37 Decision Date: 04/30/17 Decision Time: 18:37
[2017-04-30] MEDS ORDERED: THIAMINE 100 MG/ML 2 ML VIAL IM STA (18:40)
[2017-04-30] MEDS ORDERED: ONDANSETRON 4 MG/2 ML VIAL IVP PRN (18:40)
[2017-04-30] MEDS ORDERED: LORazepam 2 MG/ML SYRINGE IV PRN (18:40)
[2017-04-30] MEDS ORDERED: NALOXONE 0.4 MG/ML 1 ML VIAL IV PRN (18:40)
[2017-04-30 20:47] VITALS: BMI 23.1
[2017-04-30] MEDS ORDERED: traMADol 50 MG TAB PO SCH (22:00)
[2017-04-30] MEDS: PANTOPRAZOLE 40 MG/10 ML VIAL IV SCH (22:14)
[2017-04-30] MEDS: THIAMINE 100 MG TAB PO SCH (22:14)
[2017-04-30] MEDS: GABAPENTIN 400 MG CAP PO SCH (22:14)
[2017-04-30] MEDS: LORazepam 2 MG/ML SYRINGE IV PRN ×2 (22:22→23:44)
[2017-05-01] MEDS: LORazepam 2 MG/ML SYRINGE IV PRN ×8 (00:53→21:53)
[2017-05-01] MEDS: SODIUM CHLORIDE 0.9% 1,000 ML IV SCH ×3 (03:18→11:41)
[2017-05-01 07:26] LABS: Anion Gap 10 mmol/L; Blood Urea Nitrogen 11 mg/dL (9-20); Calcium 7.8 mg/dL (8.4-10.2); Carbon Dioxide 26 mmol/L (22-30); Chloride 107 mmol/L (98-107); Glucose 81 mg/dL (74-99); Non-African American GFR(MDRD) >60 (>60 ml/min/1.73 sqM); Potassium 3.5 mmol/L (3.5-5.1); Sodium 143 mmol/L (137-145)
[2017-05-01 07:53] LABS: Anisocytosis Slight; Basophils # (A) 0.1 k/uL (0-0.2); Basophils % (A) 2 %; CH 28.6; CHCM 32.7; Eosinophils # (A) 0.1 k/uL (0-0.7); Eosinophils % (A) 1 %; HCT 46.7 % (39.0-53.0); HDW 3.17; HGB 15.5 gm/dL (13.0-17.5); Hypochromasia Slight; Luc # (Auto) 0.07; Luc % (Auto) 1; Lymphocytes # (A) 0.8 k/uL (1.0-4.8); Lymphocytes % (A) 16 %; MCH 29.1 pg (25.0-35.0); MCHC 33.1 g/dL (31.0-37.0); Mean Platelet Volume 7.9; Monocytes # (A) 0.3 k/uL (0-1.0); Monocytes % (A) 7 %; Neutrophils # (A) 3.6 k/uL (1.3-7.7); Neutrophils % (A) 74 %; RBC 5.31 m/uL (4.30-5.90); RDW 18.7 % (11.5-15.5); WBC 4.9 k/uL (3.8-10.6)
[2017-05-01] MEDS ORDERED: NON-FORMULARY DRUG (Vilazodone Hcl [Viibryd] 20 MG) PO SCH (09:00)
[2017-05-01] MEDS: PANTOPRAZOLE 40 MG/10 ML VIAL IV SCH (09:37)
[2017-05-01] MEDS: GABAPENTIN 400 MG CAP PO SCH ×4 (09:37→21:53)
[2017-05-01] MEDS: CLOPIDOGREL 75 MG TAB PO SCH (09:38)
[2017-05-01] MEDS: ASPIRIN 81 MG CHEW PO SCH (09:38)
[2017-05-01] MEDS: ATORVASTATIN 40 MG TAB PO SCH (09:38)
[2017-05-01] MEDS: ENOXAPARIN 40 MG/0.4 ML SYRINGE SQ SCH (09:38)
[2017-05-01] MEDS: traMADol 50 MG TAB PO PRN ×2 (09:46→16:23)
[2017-05-01] MEDS: THIAMINE 100 MG TAB PO SCH ×2 (11:35→17:19)
--- NOTE | 2017-05-01 11:42 | P.HPIM ---
History of Present Illness H&P Date: 05/01/17 Chief Complaint: Alcohol intoxication, sucidial This is a 61-year-old white male who presented to the emergency room on 2016 via EMS for alcohol intoxication. Patient has a history of alcohol abuse, depression, and left leg dutnh-jeo-evis amputation. Patient states he does not remember how he got here or most of the events that occurred yesterday. He does remember that he was drinking out of a half gallon of rum. He states he found out his girlfriend who he does not live with his dating somebody else and moved another man into her house. Patient states that is what set him off and triggered him to drink. He admits to binge drinking for a period of anywhere from 1-3 weeks then states he will stop for a little bit and then will have another trigger and then continues drink. He states he has been to treatment twice for his alcoholism. He admits to feeling depressed due to his current situation and also suicidal. Patient states he had a razor blade yesterday and was contemplating cutting his wrist. supervising nurse currently at bedside. Patient denies any chest pain, shortness of breath, nausea or vomiting. Patient states he isn't every day smoker but denies marijuana or other illicit drug use. Patient states he lives at home independently. Patient complains of pain on right lateral side of abdomen. Small bruising present. When questioning patient he states he may have fell a few times yesterday when intoxicated. Review of Systems GENERAL: Patient denies fever, chills, weight gain, or weight loss. Positive for depression and suicidal ideation. RESPIRATORY: Denies dyspnea, cough, sputum production, or hemoptysis. CARDIOVASCULAR: Denies chest pain, pressure, palpitations, claudication, or arrhythmias. GI: Denies diarrhea, incontinence, heartburn, nausea, constipation, or blood in the stool. Positive for right lateral abdominal pain. : Denies urinary frequency, burning, dysuria, or cloudy urine. Denies blood in the urine. MUSCULOSKELETAL: Denies pain or tenderness. Denies cramps, swelling, or decreased range of motion. Past Medical History Past Medical History: Chest Pain / Angina, Deep Vein Thrombosis (DVT), Eye Disorder, GI Bleed, Hypertension, Pulmonary Embolus (PE), Skin Disorder, Vascular Disorder Additional Past Medical History / Comment(s): HX OF CHEST PAIN X1 R/T ANXIETY ATTACK. "HX BLOOD CLOT RT SHOULDER." HX GASTRIC ULCERS. C6-7 "SQUEEZED TOGETHER." LESION ON FOREHEAD. PE 02/2016. LT LEG ABOVE KNEE AMPUTATION, PAIN IN LEFT STUMP; RT FOOT N/T. USES WHEELCHAIR TO AMBULATE History of Any Multi-Drug Resistant Organisms: MRSA Date of last positivie culture/infection: 2015 MDRO Source:: LEFT LEG WOUND Additional Past Surgical History / Comment(s): LT LEG BYPASS 09/2015; LT LEG ABOVE KNEE AMPUTATION 01/2016; SEVERAL DEBRIDEMENTS. Facial Surgery. RIGHT SFA ANGIOPLASTY WITH STENT 10/17/16 Past Anesthesia/Blood Transfusion Reactions: No Reported Reaction Past Psychological History: Anxiety, Depression, Panic Disorder Additional Psychological History / Comment(s): "SITUATIONAL" DEPRESSION. "GETS PANICKY WHEN OUT OF HOUSE." Smoking Status: Current every day smoker Past Alcohol Use History: Abuse, Daily, Heavy Additional Past Alcohol Use History / Comment(s): SMOKES 2 PPD, X45 YEARS. STATES HAD EPISODE OF DRINKING EXCESSIVE 4 WEEKS AGO, has been drinking alot since amputation Past Drug Use History: None Reported - Past Family History Mother Family Medical History: Cancer Additional Family Medical History / Comment(s): POSS CA, HAD HYSTERECTOMY, UNSURE D/T HER SCHIZOPHRENIA. Medications and Allergies Home Medications Medication Instructions Recorded Confirmed Type Aspirin 81 mg PO DAILY 09/18/16 05/01/17 History Gabapentin 800 mg PO QID 09/18/16 05/01/17 History LORazepam [Ativan] 1 mg PO BID 09/18/16 05/01/17 History Atorvastatin [Lipitor] 20 mg PO DAILY 05/01/17 05/01/17 History Sertraline HCl [Zoloft] 50 mg PO DAILY 05/01/17 05/01/17 History amLODIPine BESYLATE [Norvasc] 5 mg PO DAILY 05/01/17 05/01/17 History Allergies Allergy/AdvReac Type Severity Reaction Status Date / Time No Known Allergies Allergy Verified 04/30/17 16:08 Physical Exam Vitals: Vital Signs Temp Pulse Pulse Resp BP BP Pulse Ox 05/01/17 07:00 98.3 F 95 20 156/89 91 L 04/30/17 21:01 98.1 F 89 16 130/75 93 L 04/30/17 19:53 97.8 F 95 18 116/75 98 04/30/17 19:38 97.8 F 95 18 116/75 98 04/30/17 17:56 89 20 110/70 92 L 04/30/17 16:08 98.1 F 93 20 115/89 98 Intake and Output 04/30/17 05/01/17 05/01/17 22:59 06:59 14:59 Intake Total 80 640 Balance 80 640 Intake: Intake, IV Titration 80 640 Amount Sodium Chloride 0.9% 1, 80 640 000 ml @ 80 mls/hr IV . [id number] [facility] Rx#:[id number] Other: Voiding Method Urinal # Voids 0 0 Weight 71 kg 71 kg Patient Weight 05/02/17 06:59 Weight 71 kg Results CBC & Chem 7: 05/01/17 06:30 05/01/17 06:30 Labs: Abnormal Lab Results - Last 24 Hours (Table) 04/30/17 04/30/17 05/01/17 Range/Units 16:30 16:30 06:30 RDW 18.8 H 18.7 H (11.5-15.5) % Lymphocytes # 0.8 L (1.0-4.8) k/uL Sodium 147 H (137-145) mmol/L Chloride 108 H (98-107) mmol/L BUN 7 L (9-20) mg/dL Creatinine 0.52 L (0.66-1.25) mg/dL Calcium 8.0 L (8.4-10.2) mg/dL U Benzodiazepines Scrn (NotDetected) 05/01/17 05/01/17 Range/Units 06:30 08:45 RDW (11.5-15.5) % Lymphocytes # (1.0-4.8) k/uL Sodium (137-145) mmol/L Chloride (98-107) mmol/L BUN (9-20) mg/dL Creatinine 0.51 L (0.66-1.25) mg/dL Calcium 7.8 L (8.4-10.2) mg/dL U Benzodiazepines Scrn Detected H (NotDetected) Thrombosis Risk Factor Assmnt - Choose All That Apply Any of the Below Risk Factors Present?: Yes Each Factor Represents 1 point: Age 41-60 years Other Risk Factors: Yes Each Risk Factor Represents 2 Points: Patient confined to bed Each Risk Factor Represents 3 Points: History of DVT/PE Other congenital or acquired thrombophilia - If yes, enter type in comment: No Thrombosis Risk Factor Assessment Total Risk Factor Score: 6 Thrombosis Risk Factor Assessment Level: High Risk Assessment and Plan (1) Alcohol intoxication Status: Acute (2) Hypernatremia Narrative/Plan: Present on admission, resolved Status: Acute (3) Depression Narrative/Plan: Present on admission, Patient with suicidal ideations Status: Chronic (4) Suicidal ideation Narrative/Plan: Present upon admission Status: Acute Plan: Psychiatry on consult. Appreciate input and recommendations Continue safety lamp keeper at bedside for suicidal ideations Monitor for signs and symptoms of alcohol withdrawal Monitor vital signs and address as appropriate GI/DVT prophylaxis Importance of alcohol cessation reinforced with patient. Discontinue IV fluid. Patient tolerating regular diet with adequate oral intake. Abdominal x-ray to rule out injury from possible fall at home Continue with Ultram for pain. Continue to monitor blood pressure. Added hydralazine added for systolic blood pressure greater than 160 The above impression and plan of care have been discussed and directed by signing physician. Karmen Escalona, nurse practitioner, acting as scribe for signing physician.
[2017-05-01] MEDS ORDERED: hydrALAZINE HCL 20 MG/ML 1 ML VIAL IVP PRN (11:44)
--- NOTE | 2017-05-01 14:11 | XR ---
2 view abdomen HISTORY: Abdominal pain 2 views of the abdomen on 4 images No comparisons Lung bases are clear. There is no pneumoperitoneum or bowel obstruction. There are overlying cardiac leads. Inferior vena cava filter is present central portion of the L2 vertebral body transverse proce ss. There may be compression deformity of L2, mild dextroscoliosis centered at L2. Surgical clips pre sent in the left groin. Vascular calcifications present within the pelvis. Probable right common halima c artery stent in place. IMPRESSION: No acute abnormality. Post instrumentation changes. L2 compression fracture of indetermin ate age.
--- NOTE | 2017-05-01 17:06 | CONS ---
DATE OF SERVICE: 05/01/2017 PURPOSE FOR CONSULTATION: Evaluate for alcohol dependence and depression. HISTORY OF PRESENTING ILLNESS: The patient was brought to the hospital via EMS due to alcohol intoxication. He has a history of alcohol abuse, depression and left leg above the knee amputation. He did not recall the events that lead up to his coming to the hospital. He stated that he had drank a half a gallon of rum on the day of admission. He stated that he was distressed over the fact that his girlfriend broke up with him and had started seeing another man which set off excessive drinking. He said he was on a binge for 1-3 weeks. He became increasingly depressed. He had suicide thoughts and had contemplated cutting his wrist with a razor blade. He has had buttermilk drier operator drinking problems. He was vague about his general use though. Suggested that he would drink up to 1 liter of alcohol per day. He said that he had a five month stretch where he was not drinking at all though was not clear when that had occurred. He said that recently he got started on Viibryd and took it for about four weeks. He did not feel it helped as far as depression. He, otherwise, has not had any significant substance use or mental health intervention. He has attended some AA meetings at different times though says he did not get much benefit from that. In the past he has used marijuana though reports for the last several years that they only substance he consumes would be alcohol. He notes that he will take Ativan and may take two tablets at bedtime for sleep, mainly on days where he does not drink. According to the medical record, he has been prescribed Zoloft 50 mg a day though there are no details. He is also on gabapentin 800 mg four times a day apparently for pain issues. He has a left above the knee amputation and uses a wheelchair. He says that he has had difficulty managing with his wheelchair as far as doing things like getting out in the community. He seemed to suggest that his girlfriend had been helpful to support him in negotiating community activities although now he is left on his own. It is not clear that he has much else for social support. He has been living in some kind of a skilled nursing facility which he says is a fair situation for him. He says that he gets along with some of the residents though not others. He does have a trailer. He said that his girlfriend is living in the trailer and at this point a boyfriend that she has taken up with has moved in there as well. The two apparently plan to vacate first may. He has the thoughts of moving back to the trailer though he acknowledges it is difficult for him to negotiate that with his limited mobility. The patient has not had a past psychiatric hospitalization. He has not had other mental health interventions say for some limited trials of antidepressant medication. When I talked to the patient he was not indicating that he had any clear thoughts or impulses towards self harm. He denies any history of hallucinations or delusions. He does get anxiety and will get panic attacks when he is out in public settings. He does not clearly identify posttraumatic issues. MENTAL STATUS: The patient was in bed laying down. He gave fairly good eye contact. He was a little restless. Speech was clear. He answered questions with brief responses. His thoughts were clear. He did not say a lot. His affect was flat. His mood depressed. He was moderately distressed. ASSESSMENT: This 61-year-old male is diagnosed with major depression and alcohol dependence. I discussed the option of an inpatient substance use treatment program. He was willing to consider that which at this point is likely the treatment of choice for him based on his overall situation. I requested that the nurse contact social work to look for placement. An alternative would be a possible short term stay on the psychiatric unit as an interim step aiming towards an inpatient substance use program. Currently the patient is on Viibryd 20 mg a day as his primary psychotropic medication. He also has Ativan for withdrawal protocol. Beyond that he takes Tramadol and Neurontin as his only other psychoactive medications. I would continue the Viibryd the same. There could be consideration for increasing the dose to 40 mg. The primary consideration at this point is referral for an inpatient substance use treatment program. He would be appropriate for a 21-28 day program. Please contact the psychiatric unit if there are further considerations that arise through the weekend. LILIA
[2017-05-01] MEDS: carBAMazepine 200 MG TAB PO SCH (20:21)
--- NOTE | 2017-05-01 20:50 | P.CNNES ---
History of Present Illness Consult date: 05/01/17 Reason for Consult: Patient admitted with alcohol intoxication and left phantom pain. History of Present Illness: This patient is a 61-year-old right-handed white male who was admitted to hospital yesterday for symptoms of alcohol intoxication and left leg pain. Patient has a history of having undergone a left leg amputation about 2 years ago. Following this he has had recurrent pain symptoms consistent with phantom pain involving the left lower extremity. He has been on high-dose Neurontin for treatment of this condition and is currently taking Neurontin a tender milligrams 4 times a day. Patient states that this does not help at all for his pain management. Patient was admitted for alcohol abuse and depression. He was seen by psychiatry today. They're recommending inpatient psychiatric treatment for the patient along with plans for inpatient substance abuse program. Patient states he has been dealing with history of cervical spondylosis in the neck. He did undergo a recent MRI of the cervical spine on 10/27/2016. This MRI report was reviewed. He has evidence of a large central disc herniation at C5-C6 which results in spinal cord compression. There was also bilateral significant foraminal encroachment. We have reviewed these results today with the patient in detail. He states he has been dealing with chronic neck pain and cervical spondylosis for several years. We are recommending that a orthopedic spine surgery consultation be obtained tomorrow urgently for further evaluation. Patient states that his major symptom has been phantom pain in the left leg. We have recommended a trial of carbamazepine to see if this may be of more benefit for him. Apparently the current dose of Neurontin has not been of any significant help. We will begin him on a low dose trial to see if this is of benefit. The patient otherwise has no symptoms of significant arm weakness. We will await further recommendations from orthopedic spine surgery consultation. Patient states he has been treated for pain management in the past by Dr. Fabian. Apparently he was the physician that order the MRI of the cervical spine on 10/27/2016. Depending on orthopedic spine surgery recommendations patient may require surgical intervention. We have discussed all of these findings today with the patient in detail. Patient otherwise denies any recent history of seizures. Does have a history of long-standing history of alcohol abuse. We once again encouraged him to seek out substance abuse counseling and treatment. We will continue close neurological follow-up this patient during this admission. Review of Systems Constitutional: Denies chills, Denies fever Eyes: denies blurred vision, denies pain Ears, nose, mouth and throat: Denies headache, Denies sore throat Cardiovascular: Denies chest pain, Denies shortness of breath Respiratory: Denies cough Gastrointestinal: Denies abdominal pain, Denies diarrhea, Denies nausea, Denies vomiting Musculoskeletal: Denies myalgias Integumentary: Denies pruritus, Denies rash Neurological: Reports burning pain, Reports confusion, Reports paresthesias, Reports sensory deficit, Reports tingling, Denies numbness, Denies weakness Psychiatric: Denies anxiety, Denies depression Endocrine: Denies fatigue, Denies weight change Past Medical History Past Medical History: Chest Pain / Angina, Deep Vein Thrombosis (DVT), Eye Disorder, GI Bleed, Hypertension, Pulmonary Embolus (PE), Skin Disorder, Vascular Disorder Additional Past Medical History / Comment(s): HX OF CHEST PAIN X1 R/T ANXIETY ATTACK. "HX BLOOD CLOT RT SHOULDER." HX GASTRIC ULCERS. C6-7 "SQUEEZED TOGETHER." LESION ON FOREHEAD. PE 02/2016. LT LEG ABOVE KNEE AMPUTATION, PAIN IN LEFT STUMP; RT FOOT N/T. USES WHEELCHAIR TO AMBULATE History of Any Multi-Drug Resistant Organisms: MRSA Date of last positivie culture/infection: 2015 MDRO Source:: LEFT LEG WOUND Additional Past Surgical History / Comment(s): LT LEG BYPASS 09/2015; LT LEG ABOVE KNEE AMPUTATION 01/2016; SEVERAL DEBRIDEMENTS. Facial Surgery. RIGHT SFA ANGIOPLASTY WITH STENT 10/17/16 Past Anesthesia/Blood Transfusion Reactions: No Reported Reaction Past Psychological History: Anxiety, Depression, Panic Disorder Additional Psychological History / Comment(s): "SITUATIONAL" DEPRESSION. "GETS PANICKY WHEN OUT OF HOUSE." Smoking Status: Current every day smoker Past Alcohol Use History: Abuse, Daily, Heavy Additional Past Alcohol Use History / Comment(s): SMOKES 2 PPD, X45 YEARS. STATES HAD EPISODE OF DRINKING EXCESSIVE 4 WEEKS AGO, has been drinking alot since amputation Past Drug Use History: None Reported - Past Family History Mother Family Medical History: Cancer Additional Family Medical History / Comment(s): POSS CA, HAD HYSTERECTOMY, UNSURE D/T HER SCHIZOPHRENIA. Medications and Allergies Home Medications Medication Instructions Recorded Confirmed Type Aspirin 81 mg PO DAILY 09/18/16 05/01/17 History Gabapentin 800 mg PO QID 09/18/16 05/01/17 History LORazepam [Ativan] 1 mg PO BID 09/18/16 05/01/17 History Atorvastatin [Lipitor] 20 mg PO DAILY 05/01/17 05/01/17 History Sertraline HCl [Zoloft] 50 mg PO DAILY 05/01/17 05/01/17 History amLODIPine BESYLATE [Norvasc] 5 mg PO DAILY 05/01/17 05/01/17 History Allergies Allergy/AdvReac Type Severity Reaction Status Date / Time No Known Allergies Allergy Verified 04/30/17 16:08 Physical Examination - Vital Signs Vital Signs: Vital Signs Temp Pulse Pulse Resp BP BP Pulse Ox 05/01/17 15:00 98 F 84 20 151/89 91 L 05/01/17 07:00 98.3 F 95 20 156/89 91 L 04/30/17 21:01 98.1 F 89 16 130/75 93 L 04/30/17 19:53 97.8 F 95 18 116/75 98 04/30/17 19:38 97.8 F 95 18 116/75 98 04/30/17 17:56 89 20 110/70 92 L Intake and Output 05/01/17 05/01/17 05/01/17 06:59 14:59 22:59 Intake Total 640 Output Total 500 Balance 640 -500 Intake: Intake, IV Titration 640 Amount Sodium Chloride 0.9% 1, 640 000 ml @ 80 mls/hr IV . [id number] [facility] Rx#:[id number] Output: Urine 500 Other: Voiding Method Urinal # Voids 0 1 Weight 71 kg Patient Weight 05/02/17 06:59 Weight 71 kg - Constitutional General appearance: average body habitus, cooperative - EENT EENT: PERRL, mucous membranes moist - Respiratory Respiratory: lungs clear, normal breath sounds - Cardiovascular Cardiovascular: regular rate, normal S1, normal S2 Extremities: no peripheral edema bilaterally - Gastrointestinal Gastrointestinal: normoactive bowel sounds - Integumentary Integumentary: normal - Neurologic Cranial nerve examination: PERRL, EOMI, VFF, V1/V2/V3 grossly intact, face symmetric, tongue midline, intact gag reflex, intact corneal reflex, normal palatal elevation Speech examination: intact Sensorimotor examination: intact Motor examination - right side: 4/5: biceps, triceps, wrist flexion, wrist extension, lithographic platemaker, hip flexors, knee extensors, dorsiflexion, toe extension (EHL) , plantarflexion Motor examination - left side: 1/5: hip flexors, knee extensors, dorsiflexion, toe extension (EHL), plantarflexion, 4/5: biceps, triceps, wrist flexion, wrist extension, lithographic platemaker Detailed sensory examination: intact Reflex and gait examination: intact Reflexes: 1+: ankle, bicep, knee, tricep - Musculoskeletal Musculoskeletal: pain in joint, other (Patient has evidence of left lower extremity phantom pain.) - Psychiatric Psychiatric: mood/affect appropriate, cooperative Results - Laboratory Findings CBC and BMP: 05/01/17 06:30 05/01/17 06:30 Abnormal Lab Findings: Abnormal Labs 04/30/17 04/30/17 05/01/17 16:30 16:30 06:30 RDW 18.8 H 18.7 H Lymphocytes # 0.8 L Sodium 147 H Chloride 108 H BUN 7 L Creatinine 0.52 L Calcium 8.0 L U Benzodiazepines Scrn 05/01/17 05/01/17 06:30 08:45 RDW Lymphocytes # Sodium Chloride BUN Creatinine 0.51 L Calcium 7.8 L U Benzodiazepines Scrn Detected H Assessment and Plan (1) Cervical spondylosis Status: Acute Code(s): M47.812 - SPONDYLOSIS W/O MYELOPATHY OR RADICULOPATHY, CERVICAL REGION (2) Cord compression Status: Acute Code(s): G95.20 - UNSPECIFIED CORD COMPRESSION (3) Phantom pain Status: Acute Code(s): R52 - PAIN, UNSPECIFIED (4) Alcohol intoxication Status: Acute Code(s): F10.929 - ALCOHOL USE, UNSPECIFIED WITH INTOXICATION, UNSPECIFIED Plan: This patient is 61-year-old male who was admitted to hospital with alcohol intoxication and worsening left leg pain. Patient has history of having undergone amputation of his left leg 2 years ago. He is suffering from chronic recurrent pain which is consistent with probable phantom pain. He has been on high-dose Neurontin with very little or no effect. We have suggested a trial of carbamazepine to see if he may benefit. He has been seen by psychiatry who are recommending for him to continue on his current psychiatric medications. They are recommending inpatient substance abuse program for this patient. We have discussed his recent MRI of the cervical spine that was performed on 2016. This MRI does reveal evidence of cervical disc herniation with cord compression at C5-C6 level. We have recommended a urgent orthopedic spine surgery consultation for further evaluation. The patient may require further intervention for this condition. He does continue to have significant phantom pain symptoms. We will need to titrate his dose of carbamazepine to see if he shows some degree of improvement. He may be considered for neurosurgical intervention as well if the pain symptoms are intractable. We will continue close neurological follow-up of this patient. His overall prognosis at this time remains very guarded. Case was discussed at length with the patient. All of his questions were answered. He is aware of his own guarded condition. Time with Patient: Greater than 30
[2017-05-02] MEDS: LORazepam 2 MG/ML SYRINGE IV PRN ×11 (01:57→23:55)
[2017-05-02] MEDS: carBAMazepine 200 MG TAB PO SCH ×2 (08:10→21:32)
[2017-05-02] MEDS: ASPIRIN 81 MG CHEW PO SCH (08:10)
[2017-05-02] MEDS: CLOPIDOGREL 75 MG TAB PO SCH (08:10)
[2017-05-02] MEDS: PANTOPRAZOLE 40 MG TABLET PO SCH (08:10)
[2017-05-02] MEDS: ATORVASTATIN 40 MG TAB PO SCH (08:10)
[2017-05-02] MEDS: GABAPENTIN 400 MG CAP PO SCH ×4 (08:10→21:32)
[2017-05-02] MEDS: ENOXAPARIN 40 MG/0.4 ML SYRINGE SQ SCH (08:11)
[2017-05-02] MEDS: HYDROcodone/APAP 5-325MG 1 EACH TAB PO PRN ×4 (09:37→22:47)
--- NOTE | 2017-05-02 10:04 | P.CNOR ---
History of Present Illness - [facility] Consult date: 05/02/17 Requesting physician: Elzbieta Lee Consult reason: neck pain History of present illness: Patient is seen and examined today at bedside. He is a 61-year-old male with long-standing history of neck pain over the past 20 years. He says he did not have any recent acute change in his neck or trauma. He says the pain extends in his neck into his bilateral upper extremities over his shoulders down to his elbows. He feels the right side is worse than left. He feels the pain circumferentially around his right shoulder and around his upper arms. He denies any numbness tingling in his hands or fingers. He denies any new weakness in his upper extremities. Denies any acute neurologic changes upper extremity. The patient was admitted due to severe pain at his left lower extremity stump where he has had a above knee amputation last year. He has continued to have severe problem is with his left stump. And he has been recurrent seeding active treatment for this. He says the pain in his stump has been his overriding issue and that he drinks regularly to try to alleviate the pain as he feels his pain medicine has not been effective for him. He sees Dr. Fabian as an outpatient regards to his pain and pain management treatment. Apparently he was also referred to Arnaldo Palacios regards to his cervical spine issues as an outpatient from Dr. Fabian. He denies any new changes in his neck or his operative extremity. He says that he continues to have chronic pain in his neck. He has been able to use his wheelchair and is able to transfer himself. He has not been able to use his prosthetic leg due to his stump pain. He denies any changes in his upper extremities or weakness in his upper extremities. Review of Systems Denies any fevers chills night sweats. Admits to regular drinking a daily basis. Denies any changes in his upper extremities acutely. Admits to chronic pain in his neck. Past Medical History Past Medical History: Chest Pain / Angina, Deep Vein Thrombosis (DVT), Eye Disorder, GI Bleed, Hypertension, Musculoskeletal Disorder (Chronic neck pain with degenerative disc disease and bilateral upper extremities biopsy without acute change), Pulmonary Embolus (PE), Skin Disorder, Vascular Disorder Additional Past Medical History / Comment(s): HX OF CHEST PAIN X1 R/T ANXIETY ATTACK. "HX BLOOD CLOT RT SHOULDER." HX GASTRIC ULCERS. C6-7 "SQUEEZED TOGETHER." LESION ON FOREHEAD. PE 02/2016. LT LEG ABOVE KNEE AMPUTATION, PAIN IN LEFT STUMP; RT FOOT N/T. USES WHEELCHAIR TO AMBULATE History of Any Multi-Drug Resistant Organisms: MRSA Year Discovered:: 2015 MDRO Source:: LEFT LEG WOUND Additional Past Surgical History / Comment(s): LT LEG BYPASS 09/2015; LT LEG ABOVE KNEE AMPUTATION 01/2016; SEVERAL DEBRIDEMENTS. Facial Surgery. RIGHT SFA ANGIOPLASTY WITH STENT 10/17/16 Past Anesthesia/Blood Transfusion Reactions: No Reported Reaction Past Psychological History: Anxiety, Depression, Panic Disorder Additional Psychological History / Comment(s): "SITUATIONAL" DEPRESSION. "GETS PANICKY WHEN OUT OF HOUSE." Smoking Status: Current every day smoker Past Alcohol Use History: Abuse, Daily, Heavy Additional Past Alcohol Use History / Comment(s): SMOKES 2 PPD, X45 YEARS. STATES HAD EPISODE OF DRINKING EXCESSIVE 4 WEEKS AGO, has been drinking alot since amputation Past Drug Use History: None Reported - Past Family History Mother Family Medical History: Cancer Additional Family Medical History / Comment(s): POSS CA, HAD HYSTERECTOMY, UNSURE D/T HER SCHIZOPHRENIA. Medications and Allergies Home Medications Medication Instructions Recorded Confirmed Type Aspirin 81 mg PO DAILY 09/18/16 05/01/17 History Gabapentin 800 mg PO QID 09/18/16 05/01/17 History LORazepam [Ativan] 1 mg PO BID 09/18/16 05/01/17 History Atorvastatin [Lipitor] 20 mg PO DAILY 05/01/17 05/01/17 History Sertraline HCl [Zoloft] 50 mg PO DAILY 05/01/17 05/01/17 History amLODIPine BESYLATE [Norvasc] 5 mg PO DAILY 05/01/17 05/01/17 History Allergies Allergy/AdvReac Type Severity Reaction Status Date / Time No Known Allergies Allergy Verified 04/30/17 16:08 Physical Examination Osteopathic Statement: *. No significant issues noted on an osteopathic structural exam other than those noted in the History and Physical/Consult. - C Spine: dermatomal strength & reflexes bilateral Shoulder strength: flexion: 5/5 (At his neck is nontender over the midline. His positive paravertebral spasm in his neck. He has full active and passive range of motion without specific Spurling sign. His trapezium has significant tenderness with spasm. His bilateral upper extremities have 5 out of 5 muscle strength of his shoulders elbows wrists hands and fingers. He has 5 out of 5 strength with masseur/masseuse wrist flexion and extension and interosseous and thumb extension. He has negative clonus. Negative Sloane's. His reflexes are 2 out of 4 equal bilaterally. His lower extremities he has an amputation at the left above-knee. There is no open wounds. He has tenderness around his stump. His right lower extremity has full active and passive range of motion with 5 out of 5 strength. No clonus. No hyperreflexia) Results - Labs Labs: Abnormal Lab Results - Last 24 Hours (Table) 05/01/17 Range/Units 08:45 U Benzodiazepines Scrn Detected H (NotDetected) H & H 04/30/17 05/01/17 Range/Units 16:30 06:30 Hgb 16.8 15.5 (13.0-17.5) gm/dL Hct 49.2 46.7 (39.0-53.0) % Result Diagrams: 05/01/17 06:30 05/01/17 06:30 - Diagnostic results Cervical MRI with contrast: report reviewed, image reviewed (The patient's imaging of the cervical spine is reviewed he has a new cervical computed tomography scan from this admission he also has an MRI from October of this year both which are reviewed. He has significant disc degeneration at C5 6 and C6 7 he is posterior osteophytic spurring worse at C5 6. There is disc protrusion and disc herniation at C5 6 and C6 7 with effacement anterior thecal sac and some cord compression with bilateral foraminal encroachment and stenosis. There is no apparent cord signal change. There is no myelomalacia. He has some loss of cervical lordosis.) CT scan - cervical: report reviewed, image reviewed Assessment and Plan Plan: Chronic neck pain Severe disc degeneration C5 6 C6 7 Cervical stenosis C5 6 C6 7 with disc herniation and osteophytic spurring Bilateral upper extremity radiculopathy without acute neurologic change Lower extremity stump pain at the left above-knee amputation History of peripheral vascular disease with left above-knee an dictation Alcohol abuse The patient has chronic issues at his cervical spine was severe disc degeneration and disc herniation causing stenosis at C5 6 and C6 7. He is not having acute change in regards to his cervical spine. He would be a candidate for surgical intervention for his neck which I think could give him some benefit in terms of his neck pain and upper extremity radicular symptoms. The approach would be for anterior cervical discectomy and fusion likely at C5 6 and C6 7 if necessary. At this point he is not having acute neurologic change and I would not recommend any emergent surgical intervention for his cervical spine at this point. He can follow-up with us as an outpatient and continue with conservative management for now if he wishes and would be a candidate for cervical surgery if his symptoms seem to worsen for him. For the time being the patient feels like his primary issue is his left stump pain. He is unable to get past the pain at his left lower extremity some and is continuing to have evaluation with vascular surgery for possible revision of his stump and continuing with neurology and pain management as well. From an orthopedic spine standpoint it is okay for him to follow up with us on an outpatient basis in the next 2-3 weeks to see how he is doing in terms of his cervical spine and to consider further intervention and possible surgical intervention. He is currently being managed as well with medical management in terms of his alcohol abuse. He should continue close management for this and is advised of the possible risks involved in his alcohol intake. I answered his questions best my ability and plan she can understand and he is agreeable. We will follow him up as an outpatient.
[2017-05-02] MEDS: THIAMINE 100 MG TAB PO SCH ×2 (12:22→16:54)
[2017-05-02] MEDS ORDERED: PROPRANOLOL LA 80 MG CAP.SA.24H PO SCH (13:45)
--- NOTE | 2017-05-02 14:10 | CONS ---
Mr. Ledbetter was admitted with alcohol intoxication. Cardiology was consulted on account of nonsustained ventricular tachycardia short run asymptomatic at night. His electrolytes are normal. REVIEW OF SYSTEMS: No fever, chills or rigors. No cough or expectoration. No nausea, vomiting or diarrhea. No hematuria or dysuria. No strokes or seizures. No skin lesions. Musculoskeletal: He has pain in his left stump above knee amputation stump. Past history of peripheral vascular disease, status post interventions by Dr. Roberts and he follows with Dr. Roberts. He missed his recent appointment. His medications were reviewed. His allergies are reviewed. He has no allergies. On examination, his blood pressure is elevated at 175/112 and 150/91 mmHg. He is afebrile. Pulse rate is in the 90s. Head and neck examination is normal. Heart sounds are normal. Abdomen soft and nontender. He has an above knee amputation. He has evidence of peripheral vascular disease and ( ) changes. IMPRESSION: 1. Alcohol intoxication. 2. Nonsustained ventricular tachycardia. SUGGEST: Magnesium level, a 2-D echo and Doppler study and start Inderal long acting. MTDD
--- NOTE | 2017-05-02 15:22 | PN ---
SUBJECTIVE; 61-year-old white male who presents to the hospital with alcohol intoxication, complaining of severe stump pains, severe back pain. He is in DT withdrawal. He is awaiting transfer to the psych unit. Due to the 06/23 pain some medications for pain will be ordered, low dose pain medications. Dr. Charles saw him as well as Dr. Lee. ASSESSMENT: 1. Chronic neck pain, severe cervical degenerative disc disease, cervical stenosis, radiculopathy. 2. Alcohol abuse. 3. Peripheral vascular disease. 4. Possible disc herniation. Await Dr. Charles and Dr. Lee's opinion on what to do for all these different things. In meantime, start low dose pain medicine, alcohol withdrawal CIWA protocol will be given, continue with Neurontin and send over to psychiatric chen when stable. MTDD
[2017-05-02] MEDS ORDERED: Magnesium Replacement Protocol 1 EACH MISC MISCELLANE PRN (16:07)
[2017-05-02] MEDS: MAGNESIUM SULFATE-D5W PMX 1 GM in DEXTROSE/WATER 1 100ML.BAG IVPB SCH ×2 (16:54→19:34)
--- NOTE | 2017-05-02 20:29 | P.PN ---
Subjective This patient is a 61-year-old male who was admitted to hospital with alcohol intoxication and cervical disc disease. Patient was seen by Dr. Charles who is monitoring his condition closely. At this time there is no surgical indication for the patient. He will need close monitoring. We reviewed the results of his consultation today with the patient. Patient otherwise seems to be doing somewhat better today in terms of his mental status. He has had no further changes in his neurological exam. We once again reviewed the recommendations given by Dr. Charles. We will continue close neurological follow-up of the patient during this admission. Objective - Vital Signs Vital signs: Vital Signs Temp 97.9 F 05/02/17 15:00 Pulse 96 05/02/17 16:00 Resp 18 05/02/17 16:00 BP 128/87 05/02/17 15:00 Pulse Ox 96 05/02/17 15:00 Intake & Output 05/02/17 05/02/17 05/03/17 06:59 18:59 06:59 Intake Total 540 Output Total 305 Balance -305 540 Weight 71 kg Intake: Oral 540 Output: Urine 305 Other: Voiding Method Urinal Bedside Commode # Voids 1 - Exam Physical examination: PHYSICAL EXAMINATION: Patient is resting comfortably in bed. VITAL SIGNS: Blood pressure is [128/87]. Heart rate is [94]. Respiration is [18] . Temperature is [97.9]. HEENT: Head is atraumatic, neck is supple, there were no carotid bruits. CHEST: Lungs are clear to auscultation and percussion. CARDIAC: S1, S2 normal rate and rhythm. There is no murmur. ABDOMEN: Soft and nontender. Bowel sounds are present. EXTREMITIES: There is no pedal edema. Peripheral pulses are present. Neurological examination: Patient's neurological examination is unchanged from yesterday. - Labs CBC & Chem 7: 05/01/17 06:30 05/01/17 06:30 Labs: Abnormal Lab Results - Last 24 Hours (Table) 05/02/17 Range/Units 14:06 Magnesium 1.5 L (1.6-2.3) mg/dL Assessment and Plan (1) Cervical spondylosis Status: Acute Code(s): M47.812 - SPONDYLOSIS W/O MYELOPATHY OR RADICULOPATHY, CERVICAL REGION (2) Cord compression Status: Acute Code(s): G95.20 - UNSPECIFIED CORD COMPRESSION (3) Phantom pain Status: Acute Code(s): R52 - PAIN, UNSPECIFIED (4) Alcohol intoxication Status: Acute Code(s): F10.929 - ALCOHOL USE, UNSPECIFIED WITH INTOXICATION, UNSPECIFIED Plan: This patient is 61-year-old male who was admitted to hospital with alcohol intoxication and worsening left leg pain. Patient has history of having undergone amputation of his left leg 2 years ago. He is suffering from chronic recurrent pain which is consistent with probable phantom pain. He has been on high-dose Neurontin with very little or no effect. We have suggested a trial of carbamazepine to see if he may benefit. He has been seen by psychiatry who are recommending for him to continue on his current psychiatric medications. They are recommending inpatient substance abuse program for this patient. We have discussed his recent MRI of the cervical spine that was performed on 2016. This MRI does reveal evidence of cervical disc herniation with cord compression at C5-C6 level. We have recommended a urgent orthopedic spine surgery consultation for further evaluation. The patient may require further intervention for this condition. He does continue to have significant phantom pain symptoms. We will need to titrate his dose of carbamazepine to see if he shows some degree of improvement. He may be considered for neurosurgical intervention as well if the pain symptoms are intractable. We reviewed the consultation from Dr. Charles regarding his cervical disc disease. No intervention is planned at this time. We will continue close neurological follow-up with the patient. We will continue close neurological follow-up of this patient. His overall prognosis at this time remains very guarded. Case was discussed at length with the patient. All of his questions were answered. He is aware of his own guarded condition.
[2017-05-02 23:30] VITALS: BP 134/78; RESP 17; TEMP 96.3
[2017-05-03] MEDS: LORazepam 2 MG/ML SYRINGE IV PRN ×2 (02:27→04:58)
[2017-05-03] MEDS: HYDROcodone/APAP 5-325MG 1 EACH TAB PO PRN (05:57)
[2017-05-03] MEDS ORDERED: LORazepam 1 MG TAB PO STA (09:16)
[2017-05-03] MEDS: ASPIRIN 81 MG CHEW PO SCH (09:32)
[2017-05-03] MEDS: ATORVASTATIN 40 MG TAB PO SCH (09:32)
[2017-05-03] MEDS: GABAPENTIN 400 MG CAP PO SCH (09:32)
[2017-05-03] MEDS: carBAMazepine 200 MG TAB PO SCH (09:32)
[2017-05-03] MEDS: CLOPIDOGREL 75 MG TAB PO SCH (09:32)
[2017-05-03] MEDS: PANTOPRAZOLE 40 MG TABLET PO SCH (09:33)
[2017-05-03 10:07] VITALS: PULSE 86
--- NOTE | 2017-05-03 10:57 | ECHOF ---
Referral Reason:nsvt MEASUREMENTS -------- HEIGHT: 175.3 cm WEIGHT: 70.8 kg BP: 150/91 RVIDd: 2.0 cm (< 3.3) IVSd: 0.9 cm (0.6 - 1.1) LVIDd: 4.4 cm (3.9 - 5.3) LVPWd: 1.0 cm (0.6 - 1.1) IVSs: 1.3 cm LVIDs: 3.8 cm LVPWs: 1.3 cm LAESV Index (A-L): 29.73 ml/m Ao Diam: 3.7 cm (2.0 - 3.7) AV Cusp: 1.5 cm (1.5 - 2.6) LA Diam: 3.7 cm (2.7 - 3.8) MV E Igor: 0.34 m/s MV DecT: 196 ms MV A Igor: 1.05 m/s MV E/A Ratio: 0.32 RAP: 5.00 mmHg RVSP: 10.25 mmHg FINDINGS -------- Sinus rhythm. This was a technically adequate study. Overall left ventricular systolic function is mild-moderately impaired with, an EF between 40 - 45 %. The right ventricle is normal in size and function. LA is midly dilated 29-33ml/m2. The right atrium is normal in size. Aortic valve is trileaflet and is mildly thickened. There is no evidence of aortic regurgitation. There is no evidence of aortic stenosis. The mitral valve leaflets are mildly thickened. There is trace mitral regurgitation. Trace tricuspid regurgitation present. There is no evidence of pulmonary hypertension. The right ventricular systolic pressure, as measured by Doppler, is 10.25mmHg. The pulmonic valve was not well visualized. The aortic root size is normal. Normal inferior vena cava with normal inspiratory collapse consistent with estimated right atrial pressure of 5 mmHg. The pericardium is normal. There is no pericardial effusion. CONCLUSIONS -------- 1. Sinus rhythm. 2. The right ventricular systolic pressure, as measured by Doppler, is 10.25mmHg. 3. The pulmonic valve was not well visualized. 4. The aortic root size is normal. 5. There is no pericardial effusion. 6. This was a technically adequate study. 7. Overall left ventricular systolic function is mild-moderately impaired with, an EF between 40 - 45 %. 8. LA is midly dilated 29-33ml/m2. 9. Aortic valve is trileaflet and is mildly thickened. 10. The mitral valve leaflets are mildly thickened. 11. There is trace mitral regurgitation. 12. Trace tricuspid regurgitation present. 13. There is no evidence of pulmonary hypertension. INFORMATION COORDINATOR: Johnathan Timmons RDCS
== END 2017-05-03 11:11 | disposition left against medical advice (07) ==
LOC: EC 16:01 → 5MS5E 18:40
PROVIDERS: ADMIT Family Medicine; ATTEND Family Medicine
DX: F10.229 Alcohol dependence with intoxication, unspecified (principal); Y90.8 Blood alcohol level of 240 mg/100 ml or more; E87.0 Hyperosmolality and hypernatremia; F32.9 Major depressive disorder, single episode, unspecified; R45.851 Suicidal ideations; M47.812 Spondylosis without myelopathy or radiculopathy, cervical region; F41.0 Panic disorder [episodic paroxysmal anxiety]; F41.1 Generalized anxiety disorder; F17.200 Nicotine dependence, unspecified, uncomplicated; G95.20 Unspecified cord compression; I47.2 Ventricular tachycardia; I73.9 Peripheral vascular disease, unspecified; M54.10 Radiculopathy, site unspecified; M50.30 Other cervical disc degeneration, unspecified cervical region; M48.02 Spinal stenosis, cervical region; G89.29 Other chronic pain; I10 Essential (primary) hypertension; S09.90XA Unspecified injury of head, initial encounter; W19.XXXA Unspecified fall, initial encounter; Z79.82 Long term (current) use of aspirin; Z79.899 Other long term (current) drug therapy; Z79.1 Long term (current) use of non-steroidal anti-inflammatories (NSAID); Z89.612 Acquired absence of left leg above knee; Z86.718 Personal history of other venous thrombosis and embolism; Z86.711 Personal history of pulmonary embolism; Z86.14 Personal history of Methicillin resistant Staphylococcus aureus infection
CPT/HCPCS: 96372 ×4; 99285; 96376 ×4; 96361 ×2; 96365; 96366; 96375 ×2; 82075; 36415; 93306; 80048 ×2; 83735 ×2; 85025 ×2; 80306; 83520 ×2; 80320; 74020; 72125; 70450; G0378 ×4; J2060 ×4; J0360; J3411; J1650 ×2; J3475; C9113 ×2

== ENCOUNTER 2018-08-25 13:38 | Inpatient (IN) | payer OTHER, MEDICARE ==
[2018-08-25] MEDS ORDERED: SODIUM CHLORIDE 0.9% 1,000 ML IV STA ×2 (14:16→16:05)
[2018-08-25] MEDS ORDERED: THIAMINE 100 MG/ML 2 ML VIAL IM STA (14:17)
[2018-08-25] MEDS ORDERED: LORazepam 2 MG/ML INJ IV PRN (14:17)
--- NOTE | 2018-08-25 14:21 | ED ---
General Adult HPI - General Chief complaint: Alcohol Stated complaint: Alcohol Time Seen by Provider: 08/25/18 14:02 Source: EMS, RN notes reviewed Mode of arrival: EMS Limitations: no limitations - History of Present Illness Initial comments: Patient 62-year-old male presented to the emergency room today by EMS, with chief complaint of intoxication. Patient does admit that he lives at home by himself. He states he has been falling more frequently. He admits that he's having a hard time taking care of himself.Please use medication as discussed. Please follow-up with family doctor in the next 2 days of symptoms have not improved. Please return to emergency room if the symptoms increase or worsen or for any other concerns. States that he is a daily drinker. He states he was drinking today. He states he did not call EMS. A friend apparently called EMS because patient's house is on level. He is covered in feces. EMS stating that house is a mess. Patient does admit to neck pain. States he has had recent fall. Patient denies any other complaints at this time. - Related Data Home Medications Medication Instructions Recorded Confirmed Unable To Assess [Unable to Assess] 08/25/18 08/25/18 Allergies Allergy/AdvReac Type Severity Reaction Status Date / Time No Known Allergies Allergy Verified 08/25/18 16:32 Review of Systems ROS Statement: Those systems with pertinent positive or pertinent negative responses have been documented in the HPI. ROS Other: All systems not noted in ROS Statement are negative. Past Medical History Past Medical History: Chest Pain / Angina, Deep Vein Thrombosis (DVT), Eye Disorder, GI Bleed, Hypertension, Pulmonary Embolus (PE), Skin Disorder, Vascular Disorder Additional Past Medical History / Comment(s): HX OF CHEST PAIN X1 R/T ANXIETY ATTACK. "HX BLOOD CLOT RT SHOULDER." HX GASTRIC ULCERS. C6-7 "SQUEEZED TOGETHER." LESION ON FOREHEAD. PE 02/2016. LT LEG ABOVE KNEE AMPUTATION, PAIN IN LEFT STUMP; RT FOOT N/T. USES WHEELCHAIR TO AMBULATE History of Any Multi-Drug Resistant Organisms: MRSA Date of last positivie culture/infection: 2015([facility]) MDRO Source:: LEFT LEG WOUND Additional Past Surgical History / Comment(s): LT LEG BYPASS 09/2015; LT LEG ABOVE KNEE AMPUTATION 01/2016; SEVERAL DEBRIDEMENTS. Facial Surgery. RIGHT SFA ANGIOPLASTY WITH STENT 10/17/16 Past Anesthesia/Blood Transfusion Reactions: No Reported Reaction Past Psychological History: Anxiety, Depression, Panic Disorder Smoking Status: Current every day smoker Past Alcohol Use History: Abuse, Daily, Heavy Past Drug Use History: None Reported - Past Family History Mother Family Medical History: Cancer Additional Family Medical History / Comment(s): POSS CA, HAD HYSTERECTOMY, UNSURE D/T HER SCHIZOPHRENIA. General Exam - General Exam Comments Initial Comments: General: The patient is awake and alert, in no distress, and does not appear acutely ill. Eye: Pupils are equal, round and reactive to light, extra-ocular movements are intact. No nystagmus. There is normal conjunctiva bilaterally. No signs of icterus. Ears, nose, mouth and throat: There are moist mucous membranes and no oral lesions. Neck: The neck is supple. Cardiovascular: There is a regular rate and rhythm. No murmur, rub or gallop is appreciated. Respiratory: Lungs are clear to auscultation, respirations are non-labored, breath sounds are equal. No wheezes, stridor, rales, or rhonchi. Gastrointestinal: Soft, non-distended, non-tender abdomen without masses or organomegaly noted. Musculoskeletal: [id number] amputee on the left. Patient does have some bruising to the left arm purple in Color. Moves extremities full range of motion. Neurological: A&O x 3. CN II-XII intact, There are no obvious motor or sensory deficits. Coordination appears grossly intact. Speech is normal. Skin: Skin is warm and dry and no rashes or lesions are noted. Psychiatric: Cooperative Limitations: no limitations Course Vital Signs 08/25/18 08/25/18 14:02 16:00 Temperature 97.3 F L Pulse Rate 74 80 Respiratory 20 18 Rate Blood Pressure 135/91 119/86 O2 Sat by Pulse 94 L 94 L Oximetry Medical Decision Making - Medical Decision Making CT of the head and neck shows degenerative changes noted abnormalities. Patient 's chest x-rays negative. Patient's labs been reviewed does show elevated alcohol level greater than 400. Patient's CK greater than 1400. Patient given 2 L of fluids here in the emergency room. Admitted to the hospital continued on CIWA scale as he is a daily drinker. - Lab Data Result diagrams: 08/25/18 14:36 08/25/18 16:20 Lab Results 08/25/18 08/25/18 08/25/18 Range/Units 14:36 14:36 16:20 WBC 4.3 (3.8-10.6) k/uL RBC 5.75 (4.30-5.90) m/uL Hgb 17.0 (13.0-17.5) gm/dL Hct 49.6 (39.0-53.0) % MCV 86.3 (80.0-100.0) fL MCH 29.6 (25.0-35.0) pg MCHC 34.3 (31.0-37.0) g/dL RDW 17.6 H (11.5-15.5) % Plt Count 92 L (150-450) k/uL Neutrophils % 72 % Lymphocytes % 18 % Monocytes % 5 % Eosinophils % 2 % Basophils % 1 % Neutrophils # 3.1 (1.3-7.7) k/uL Lymphocytes # 0.8 L (1.0-4.8) k/uL Monocytes # 0.2 (0-1.0) k/uL Eosinophils # 0.1 (0-0.7) k/uL Basophils # 0.1 (0-0.2) k/uL Manual Slide Review Performed RBC Morphology Normal Anisocytosis Slight PT 10.3 (9.0-12.0) sec INR 1.0 (<1.2) APTT 26.6 (22.0-30.0) sec Sodium (137-145) mmol/L Potassium (3.5-5.1) mmol/L Chloride (98-107) mmol/L Carbon Dioxide (22-30) mmol/L Anion Gap mmol/L BUN (9-20) mg/dL Creatinine (0.66-1.25) mg/dL Est GFR (CKD-EPI)AfAm (>60 ml/min/1.73 sqM) Est GFR (CKD-EPI)NonAf (>60 ml/min/1.73 sqM) Glucose (74-99) mg/dL Calcium (8.4-10.2) mg/dL Total Bilirubin (0.2-1.3) mg/dL AST (17-59) U/L ALT (21-72) U/L Alkaline Phosphatase (38-126) U/L Total Creatine Kinase 1437 H* (55-170) U/L CK-MB (CK-2) 15.2 H (0.0-2.4) ng/mL CK-MB (CK-2) Rel Index 1.1 Total Protein (6.3-8.2) g/dL Albumin (3.5-5.0) g/dL Amylase (30-110) U/L Lipase (23-300) U/L Serum Alcohol mg/dL 08/25/18 Range/Units 16:20 WBC (3.8-10.6) k/uL RBC (4.30-5.90) m/uL Hgb (13.0-17.5) gm/dL Hct (39.0-53.0) % MCV (80.0-100.0) fL MCH (25.0-35.0) pg MCHC (31.0-37.0) g/dL RDW (11.5-15.5) % Plt Count (150-450) k/uL Neutrophils % % Lymphocytes % % Monocytes % % Eosinophils % % Basophils % % Neutrophils # (1.3-7.7) k/uL Lymphocytes # (1.0-4.8) k/uL Monocytes # (0-1.0) k/uL Eosinophils # (0-0.7) k/uL Basophils # (0-0.2) k/uL Manual Slide Review RBC Morphology Anisocytosis PT (9.0-12.0) sec INR (<1.2) APTT (22.0-30.0) sec Sodium 139 (137-145) mmol/L Potassium 3.4 L (3.5-5.1) mmol/L Chloride 95 L (98-107) mmol/L Carbon Dioxide 20 L (22-30) mmol/L Anion Gap 24 mmol/L BUN 12 (9-20) mg/dL Creatinine 0.42 L (0.66-1.25) mg/dL Est GFR (CKD-EPI)AfAm >90 (>60 ml/min/1.73 sqM) Est GFR (CKD-EPI)NonAf >90 (>60 ml/min/1.73 sqM) Glucose 56 L (74-99) mg/dL Calcium 8.0 L (8.4-10.2) mg/dL Total Bilirubin 1.7 H (0.2-1.3) mg/dL AST 376 H (17-59) U/L ALT 115 H (21-72) U/L Alkaline Phosphatase 189 H (38-126) U/L Total Creatine Kinase (55-170) U/L CK-MB (CK-2) (0.0-2.4) ng/mL CK-MB (CK-2) Rel Index Total Protein 6.6 (6.3-8.2) g/dL Albumin 4.0 (3.5-5.0) g/dL Amylase 44 (30-110) U/L Lipase 49 (23-300) U/L Serum Alcohol 407 H* mg/dL Disposition Clinical Impression: Alcohol intoxication, Elevated CK Disposition: ADMITTED IP TO THIS HOSP Condition: Stable Is patient prescribed a controlled substance at d/c from ED?: No Referrals: None,Stated [REFERRING] - 1-2 days Time of Disposition: 17:24
[2018-08-25 14:50] LABS: Anisocytosis Slight; Basophils # (A) 0.1 k/uL (0-0.2); Basophils % (A) 1 %; Eosinophils # (A) 0.1 k/uL (0-0.7); Eosinophils % (A) 2 %; HCT 49.6 % (39.0-53.0); Lymphocytes # (A) 0.8 k/uL (1.0-4.8); Lymphocytes % (A) 18 %; MCH 29.6 pg (25.0-35.0); MCHC 34.3 g/dL (31.0-37.0); MCV 86.3 fL (80.0-100.0); Mean Platelet Volume 7.3; Monocytes # (A) 0.2 k/uL (0-1.0); Monocytes % (A) 5 %; Neutrophils # (A) 3.1 k/uL (1.3-7.7); Neutrophils % (A) 72 %; RBC 5.75 m/uL (4.30-5.90); RDW 17.6 % (11.5-15.5); WBC 4.3 k/uL (3.8-10.6)
[2018-08-25 15:05] LABS: Platelet Count 92 k/uL (150-450)
[2018-08-25 15:10] LABS: Creatine Kinase MB 15.2 ng/mL (0.0-2.4)
--- NOTE | 2018-08-25 15:41 | XR ---
EXAMINATION TYPE: XR chest 2V DATE OF EXAM: 08/25/2018 COMPARISON: Prior chest x-ray unavailable HISTORY: Altered mental status, fall TECHNIQUE: Frontal and lateral views of the chest are obtained. FINDINGS: There is no focal air space opacity, pleural effusion, or pneumothorax seen. The cardiac silhouette size is within normal limits. Prominent lung volume compatible with underlying COPD. The osseous structures are intact. Patient is rotated. IMPRESSION: No acute cardiopulmonary process.
--- NOTE | 2018-08-25 15:49 | CT ---
EXAMINATION TYPE: CT brain yue castro con DATE OF EXAM: 08/25/2018 COMPARISON: 04/30/2017 HISTORY: Patient poor historian. Head and neck pain. CT DLP: 1501.3 mGycm. Automated Exposure Control for Dose Reduction was Utilized. TECHNIQUE: CT scan of the head and cervical spine are performed without contrast. FINDINGS: There is no acute intracranial hemorrhage or midline shift identified. There is diffuse v entricular and sulcal prominence consistent with diffuse age-related cerebral atrophy. There is low- attenuation in the periventricular white matter consistent with chronic small vessel ischemic change. The globes are intact and the visualized sinuses are clear. Atherosclerosis is noted of the intra cranial vasculature. Cervical spine is visualized in its entirety from C1 through upper thoracic levels and demonstrates s atisfactory alignment without evidence of acute fracture or dislocation. Prevertebral soft tissue ap pears within normal limits. There is a posterior disc osteophyte complex at C5-C6 creating moderate s ant canal stenosis. Multilevel uncovertebral hypertrophy and facet arthropathy are seen as well as intervertebral disc space narrowing, endplate sclerosis and anterior osteophytes. Small disc osteophy te complex is also seen at C6-C7 and C2-C3. There is mild retrolisthesis of C5 on C6. This is unchang ed from the prior. The C1-C2 articulation is unremarkable. Centrilobular and paraseptal emphysematou s changes are seen at the lung apices. Incidental note of atherosclerosis within the carotid arteries . IMPRESSION: 1. There is no acute fracture or dislocation evident in the cervical spine. Degenerative disc disease as noted on the prior exam resulting in moderate spinal canal stenosis at C5-C6 as well as stable sl ight retrolisthesis of C5 on C6, likely on a degenerative basis. 2. No acute intracranial hemorrhage, mass effect, or midline shift is seen. There is diffuse age-rela julianna cerebral atrophy and chronic small vessel ischemic change noted.
[2018-08-25 16:47] LABS: Partial Thromboplastin Time 26.6 sec (22.0-30.0); Prothrombin Time 10.3 sec (9.0-12.0)
[2018-08-25 16:49] LABS: ALT 115 U/L (21-72); AST 376 U/L (17-59); Alkaline Phosphatase 189 U/L (38-126); Amylase 44 U/L (30-110); Anion Gap 24 mmol/L; Blood Urea Nitrogen 12 mg/dL (9-20); Carbon Dioxide 20 mmol/L (22-30); Chloride 95 mmol/L (98-107); Glucose 56 mg/dL (74-99); Lipase 49 U/L (23-300); Potassium 3.4 mmol/L (3.5-5.1); Sodium 139 mmol/L (137-145); Total Bilirubin 1.7 mg/dL (0.2-1.3); Total Protein 6.6 g/dL (6.3-8.2)
[2018-08-25 17:05] LABS: Alcohol 407 mg/dL
[2018-08-25] MEDS ORDERED: ONDANSETRON 4 MG/2 ML VIAL IVP PRN (17:24)
[2018-08-25] MEDS ORDERED: SODIUM CHLORIDE 0.9% 1,000 ML IV ONE (17:24)
[2018-08-25] MEDS ORDERED: ACETAMINOPHEN TAB 325 MG TAB PO PRN (17:24)
[2018-08-25] MEDS ORDERED: NALOXONE 0.4 MG/ML 1 ML VIAL IV PRN (17:24)
[2018-08-25 17:33] LABS: Glucose,Whole Blood 60 mg/dL (75-99)
[2018-08-25] MEDS ORDERED: ASPIRIN 81 MG PO STA (17:53)
[2018-08-25] MEDS ORDERED: NITROGLYCERIN SL TABS 0.4 MG TAB SUBLINGUAL PRN (17:53)
[2018-08-25] MEDS ORDERED: THIAMINE 100 MG TAB PO SCH (19:00)
[2018-08-25 19:42] LABS: Glucose,Whole Blood 123 mg/dL (75-99)
[2018-08-25] MEDS ORDERED: Potassium Replacement Protocol 1 EACH MISC MISCELLANE PRN (21:16)
[2018-08-25] MEDS: POTASSIUM CHLORIDE ER 20 MEQ TAB.ER PO SCH ×2 (22:05→22:58)
[2018-08-25] MEDS: traMADol 50 MG TAB PO SCH (22:05)
[2018-08-25] MEDS: HALOPERIDOL LACTATE 5 MG/ML 1 ML VIAL IM PRN (22:19)
[2018-08-25] MEDS: SODIUM CHLORIDE 0.9% 1,000 ML with POTASSIUM CHLORIDE 20 MEQ, MVI, ADULT NO.4 WITH VIT ... IV SCH ×5 (22:58)
[2018-08-25 23:39] LABS: Creatine Kinase MB 8.1 ng/mL (0.0-2.4)
[2018-08-25 23:56] LABS: Troponin I 0.045 ng/mL (0.000-0.034)
--- NOTE | 2018-08-26 00:56 | P.HPIM ---
History of Present Illness H&P Date: 08/25/18 Chief Complaint: Acute alcohol intoxication Patient is a 62-year-old male with a known history of hypertension, history of DVT/PE, peripheral vascular disease with history of left above-knee amputation and also history of gastric ulcers presented to ER with complaints of acute alcohol intoxication. Patient was brought to the hospital by EMS. Patient lives by himself and is unable to take care of him. Patient is also complaining of back pain and leg pain and is requesting pain medications. Patient does drink on daily basis. EMS was called by his friend as the patient was found with covered in feces. Patient has been having multiple falls recently. Patient is currently intoxicated. Otherwise no complaints of chest pain or shortness of breath. No fever no chills. No recent illnesses as per patient. CT cervical spine showed no fracture or dislocation. Degenerative changes noted. CT head showed no acute intracranial hemorrhage. No mass effect or midline shift. There is is related atrophic changes. chest x-ray showed no acute cardiopulmonary process Patient was found have elevated AST ALT and bilirubin level. CPK level is elevated at 1437 Alcohol level greater than 400. Troponin 0.039 and 0.041 Review of Systems Complete review of systems could not be obtained from the patient. Past Medical History Past Medical History: Chest Pain / Angina, Deep Vein Thrombosis (DVT), Eye Disorder, GI Bleed, Hypertension, Pulmonary Embolus (PE), Skin Disorder, Vascular Disorder Additional Past Medical History / Comment(s): HX OF CHEST PAIN X1 R/T ANXIETY ATTACK. "HX BLOOD CLOT RT SHOULDER." HX GASTRIC ULCERS. C6-7 "SQUEEZED TOGETHER." LESION ON FOREHEAD. PE 02/2016. LT LEG ABOVE KNEE AMPUTATION, PAIN IN LEFT STUMP; RT FOOT N/T. USES WHEELCHAIR TO AMBULATE History of Any Multi-Drug Resistant Organisms: MRSA Date of last positivie culture/infection: 2015([facility]) MDRO Source:: LEFT LEG WOUND Additional Past Surgical History / Comment(s): LT LEG BYPASS 09/2015; LT LEG ABOVE KNEE AMPUTATION 01/2016; SEVERAL DEBRIDEMENTS. Facial Surgery. RIGHT SFA ANGIOPLASTY WITH STENT 10/17/16 Past Anesthesia/Blood Transfusion Reactions: No Reported Reaction Past Psychological History: Anxiety, Depression, Panic Disorder Additional Psychological History / Comment(s): "SITUATIONAL" DEPRESSION. "GETS PANICKY WHEN OUT OF HOUSE." Smoking Status: Current some day smoker Past Alcohol Use History: Abuse, Daily, Heavy Additional Past Alcohol Use History / Comment(s): SMOKES 2 PPD, X45 YEARS. STATES HAD EPISODE OF DRINKING EXCESSIVE 4 WEEKS AGO, has been drinking alot since amputation Past Drug Use History: None Reported - Past Family History Mother Family Medical History: Cancer Additional Family Medical History / Comment(s): POSS CA, HAD HYSTERECTOMY, UNSURE D/T HER SCHIZOPHRENIA. Medications and Allergies Home Medications Medication Instructions Recorded Confirmed Type Unable To Assess [Unable to Assess] 08/25/18 08/25/18 History Allergies Allergy/AdvReac Type Severity Reaction Status Date / Time No Known Allergies Allergy Verified 08/25/18 16:32 Physical Exam Vitals: Vital Signs Temp Pulse Pulse Resp BP BP Pulse Ox 08/25/18 23:05 98.5 F 103 H 18 124/75 90 L 08/25/18 23:04 111 H 16 88 L 08/25/18 21:30 98 F 78 18 129/75 92 L 08/25/18 20:00 97.1 F L 87 19 112/74 93 L 08/25/18 19:54 98.6 F 80 18 112/74 93 L 08/25/18 18:09 97.1 F L 15 112/74 93 L 08/25/18 17:33 92 18 128/83 94 L 08/25/18 16:00 80 18 119/86 94 L 08/25/18 14:02 97.3 F L 74 20 135/91 94 L Intake and Output 08/25/18 08/25/18 08/26/18 14:59 22:59 06:59 Intake Total 2000 Output Total 225 Balance 1999 - Intake: IV 2000 Sodium Chloride 0.9% 1, 1999 000 ml @ 999 mls/hr IV . Q1H1M STA Rx#:[id number] Output: Urine 225 Other: Voiding Method Urinal Diaper Weight 76.204 kg 72.2 kg PHYSICAL EXAMINATION: Patient is lying in the bed comfortably, no acute distress, awake alert but confused. Intoxicated... HEENT: Normocephalic. Neck is supple. Pupils reactive. Nostrils clear. Oral cavity is moist. Ears reveal no drainage. Neck reveals no JVD, carotid bruits, or thyromegaly. CHEST EXAMINATION: Trachea is central. Symmetrical expansion. Bibasilar diminished air entry. Lung oropeza clear to auscultation and percussion. CARDIAC: Normal S1, S2 with no gallops. No murmurs ABDOMEN: Soft. Bowel sounds normal. No organomegaly. No abdominal bruits. Extremities: reveal no edema. No clubbing or cyanosis. Left above-knee amputation. Neurologically awake, alert, oriented but confused. well-coordinated movements. No focal deficits noted Skin: No rash or skin lesions. Psychiatric: Noncooperative. Musculoskeletal: No joint swelling or deformity. Normal range of motion except the above.. Results CBC & Chem 7: 18 14:36 18 16:20 Labs: Abnormal Lab Results - Last 24 Hours (Table) 08/25/18 08/25/18 08/25/18 Range/Units 14:36 14:36 16:20 RDW 17.6 H (11.5-15.5) % Plt Count 92 L (150-450) k/uL Lymphocytes # 0.8 L (1.0-4.8) k/uL Potassium (3.5-5.1) mmol/L Chloride (98-107) mmol/L Carbon Dioxide (22-30) mmol/L Creatinine (0.66-1.25) mg/dL Glucose (74-99) mg/dL POC Glucose (mg/dL) (75-99) mg/dL Calcium (8.4-10.2) mg/dL Total Bilirubin (0.2-1.3) mg/dL AST (17-59) U/L ALT (21-72) U/L Alkaline Phosphatase (38-126) U/L Total Creatine Kinase 1437 H* (55-170) U/L CK-MB (CK-2) 15.2 H (0.0-2.4) ng/mL Troponin I 0.039 H* (0.000-0.034) ng/mL Serum Alcohol mg/dL 18 18 08/25/18 Range/Units 16:20 17:31 19:27 RDW (11.5-15.5) % Plt Count (150-450) k/uL Lymphocytes # (1.0-4.8) k/uL Potassium 3.4 L (3.5-5.1) mmol/L Chloride 95 L (98-107) mmol/L Carbon Dioxide 20 L (22-30) mmol/L Creatinine 0.42 L (0.66-1.25) mg/dL Glucose 56 L (74-99) mg/dL POC Glucose (mg/dL) 60 L 123 H (75-99) mg/dL Calcium 8.0 L (8.4-10.2) mg/dL Total Bilirubin 1.7 H (0.2-1.3) mg/dL AST 376 H (17-59) U/L ALT 115 H (21-72) U/L Alkaline Phosphatase 189 H (38-126) U/L Total Creatine Kinase (55-170) U/L CK-MB (CK-2) (0.0-2.4) ng/mL Troponin I (0.000-0.034) ng/mL Serum Alcohol 407 H* mg/dL Thrombosis Risk Factor Assmnt - DVT/VTE Prophylaxis DVT/VTE Prophylaxis: Pharmacologic Prophylaxis ordered - Choose All That Apply Any of the Below Risk Factors Present?: No Other Risk Factors: Yes Each Risk Factor Represents 2 Points: Age 61-74 years Each Risk Factor Represents 3 Points: History of DVT/PE Thrombosis Risk Factor Assessment Total Risk Factor Score: 5 Thrombosis Risk Factor Assessment Level: High Risk Assessment and Plan Assessment: Acute severe alcohol intoxication Agitation Acute rhabdomyolysis and recent history of multiple falls. Elevated liver enzymes with possible alcohol hepatitis Alcohol abuse Troponin elevation likely due to demand mismatch and rhabdomyolysis History of DVT/PE Peripheral vascular disease status post left above-knee amputation Medical debility. Currently wheelchair-bound. Anxieties, depression and panic disorder Previous history of smoking DVT prophylaxis Plan: Patient be continued on alcohol withdrawal protocol. Patient was also given Haldol when necessary for agitation. Continue with IV fluids. Patient was given IV thiamine in the ER. Continue with PPI. Monitor liver enzymes. Continue to follow closely. Further recommendations based on the clinical course. Time with Patient: Greater than 30
[2018-08-26] MEDS: LORazepam 2 MG/ML INJ IV PRN ×7 (06:44→22:54)
[2018-08-26 06:45] LABS: Anisocytosis Slight; Basophils % (A) 1 %; Eosinophils # (A) 0.3 k/uL (0-0.7); Eosinophils % (A) 7 %; Lymphocytes # (A) 0.6 k/uL (1.0-4.8); Lymphocytes % (A) 18 %; MCH 29.1 pg (25.0-35.0); MCHC 32.9 g/dL (31.0-37.0); MCV 88.3 fL (80.0-100.0); Mean Platelet Volume 7.7; Monocytes # (A) 0.3 k/uL (0-1.0); Monocytes % (A) 10 %; Neutrophils # (A) 2.3 k/uL (1.3-7.7); Neutrophils % (A) 63 %; RBC 4.54 m/uL (4.30-5.90); RDW 18.2 % (11.5-15.5); WBC 3.5 k/uL (3.8-10.6)
[2018-08-26 06:58] LABS: HGB 13.2 gm/dL (13.0-17.5); Platelet Count 58 k/uL (150-450)
[2018-08-26 06:59] LABS: ALT 110 U/L (21-72); AST 353 U/L (17-59); Albumin 3.4 g/dL (3.5-5.0); Alkaline Phosphatase 183 U/L (38-126); Anion Gap 16 mmol/L; Blood Urea Nitrogen 14 mg/dL (9-20); Carbon Dioxide 21 mmol/L (22-30); Chloride 103 mmol/L (98-107); Cholesterol 173 mg/dL (<200); Glucose 88 mg/dL (74-99); HDL Cholesterol 101 mg/dL (40-60); LDL Cholesterol,Calculated 59 mg/dL (0-99); Potassium 3.3 mmol/L (3.5-5.1); Sodium 140 mmol/L (137-145); Total Bilirubin 1.6 mg/dL (0.2-1.3); Total Protein 5.7 g/dL (6.3-8.2); Triglycerides 65 mg/dL (<150)
[2018-08-26] MEDS ORDERED: Magnesium Replacement Protocol 1 EACH MISC MISCELLANE PRN (07:12)
[2018-08-26] MEDS ORDERED: Potassium Replacement Protocol 1 EACH MISC MISCELLANE PRN (07:12)
[2018-08-26 07:20] LABS: Creatine Kinase MB 5.3 ng/mL (0.0-2.4)
[2018-08-26 07:25] LABS: Troponin I 0.053 ng/mL (0.000-0.034)
[2018-08-26] MEDS ORDERED: PANTOPRAZOLE 40 MG TABLET PO SCH (07:30)
--- NOTE | 2018-08-26 08:20 | CONS ---
CONSULTATION Nav Ledbetter is a 62-year-old gentleman who presented to the emergency room intoxicated complaining that he was not having much energy to do any activity. He lives alone by himself apparently has a hard time taking care of himself. He has a history of left above-knee amputation and also gastric ulcers, presented to the emergency room with what seems to be an intoxicated state. He is living by himself. Apparently he has had some multiple falls secondary to intoxication. His alcohol level was more than 400. His CT of cervical spine did not show any fracture or dislocation. An incidental troponin was performed. It was elevated at 0.04 and therefore I was asked to see him. There are 2 values both of them in the same range at 0.03 and 0.04. I am unable to have a meaningful discussion with the patient. He is still seems to be a bit intoxicated. However, he is not in any distress. PAST MEDICAL HISTORY: Remarkable for history of DVT, pulmonary embolism in the past. He has alcohol intoxication with several admissions and also MRSA infection left leg wound. He has above-knee amputation on his left side. MEDICATIONS: None. ALLERGIES: None. REVIEW OF SYSTEMS: Unable to obtain. PHYSICAL EXAMINATION: On examination, blood pressure is 124/70, pulse rate is 88 per minute regular. HEENT unremarkable. Fundus was not examined by me. Neck is supple. No JVD. Heart exam reveals S1, S2 heard normally. No significant murmurs. Lungs are clear. Abdomen is soft. Lower extremities reveal above-knee amputation on the left, some ulcers also. EKG revealed sinus mechanism, nonspecific ST-T changes. IMPRESSION: 1. Alcohol intoxication. 2. Troponin elevation, not suggestive of myocardial injury. 3. History of pulmonary embolism in the past. 4. History of above-knee amputation on the left. The reason is unclear whether it was a poor circulation or an injury, nonhealing wound. RECOMMENDATIONS: I am recommending that we obtain a magnesium level. We will supplement potassium aggressively and also obtain an echocardiogram to assess LV function. Based on this, I will make further recommendations. I do not believe any aggressive intervention is necessary from a cardiac standpoint. Thank you very much for the consult. MMODL / IJN: [id number] /
--- NOTE | 2018-08-26 08:46 | ECHOF ---
Referral Reason:positive troponin MEASUREMENTS -------- HEIGHT: 175.3 cm WEIGHT: 69.9 kg BP: 143/73 Ao Diam: 3.7 cm (2.0 - 3.7) AV Cusp: 1.7 cm (1.5 - 2.6) LA Diam: 3.2 cm (2.7 - 3.8) RAP: 5.00 mmHg RVSP: 12.88 mmHg %FS: 26.27 % EDV(Teich): 101.22 ml EF(Teich): 51.50 % ESV(Teich): 49.09 ml IVSd: 1.25 cm (0.6 - 1.1) IVSs: 1.78 cm LVIDd: 4.68 cm (3.9 - 5.3) LVIDs: 3.45 cm LVPWd: 1.25 cm (0.6 - 1.1) LVPWs: 1.55 cm SV(Teich): 52.13 ml FINDINGS -------- Sinus rhythm. Resting tachycardia (HR>100bpm). This was a technically difficult study with suboptimal views. The left ventricular size is normal. There is mild concentric left ventricular hypertrophy. There is mild global hypokinesis of LV . Overall left ventricular systolic function is mildly impaired w ith, an EF between 45 - 50 %. The right ventricle is normal in size and function. The left atrium was not well visualized. The right atrium was not well visualized. 5 ml of Lumason was utilized for enhancement of images. The aortic valve was not well visualized. The mitral valve was not well visualized. Trace tricuspid regurgitation present. Right ventricular systolic pressure is normal at < 35 mmHg. The right ventricular systolic pressure, as measured by Doppler, is 12.88mmHg. The pulmonic valve was not well visualized. The aortic root size is normal. Normal inferior vena cava with normal inspiratory collapse consistent with estimated right atrial pre ssure of 5 mmHg. There is a trivial pericardial effusion present. CONCLUSIONS -------- 1. Sinus rhythm. 2. Resting tachycardia (HR>100bpm). 3. This was a technically difficult study with suboptimal views. 4. The left ventricular size is normal. 5. There is mild concentric left ventricular hypertrophy. 6. There is mild global hypokinesis of LV . 7. Overall left ventricular systolic function is mildly impaired with, an EF between 45 - 50 %. 8. The left atrium was not well visualized. 9. 5 ml of Lumason was utilized for enhancement of images. 10. The aortic valve was not well visualized. 11. The mitral valve was not well visualized. 12. Trace tricuspid regurgitation present. 13. Right ventricular systolic pressure is normal at < 35 mmHg. 14. The pulmonic valve was not well visualized. 15. The aortic root size is normal. 16. There is a trivial pericardial effusion present. [employer] HAND: Johnathan Timmons RDCS
[2018-08-26] MEDS: POTASSIUM CHLORIDE 10 MEQ in WATER FOR INJECTION 1 100ML.BAG IVPB SCH ×4 (08:49→14:00)
[2018-08-26] MEDS: ASPIRIN 325 MG TAB PO SCH (10:40)
[2018-08-26] MEDS: PANTOPRAZOLE 40 MG TABLET PO SCH (10:40)
[2018-08-26] MEDS: traMADol 50 MG TAB PO SCH ×3 (10:40→21:22)
[2018-08-26] MEDS: HEPARIN SODIUM,PORCINE 5,000 UNIT/ML 1 ML VIAL SQ SCH ×3 (10:40→21:28)
[2018-08-26] MEDS: SODIUM CHLORIDE 0.9% 1,000 ML with POTASSIUM CHLORIDE 20 MEQ, MVI, ADULT NO.4 WITH VIT ... IV SCH ×10 (14:56→23:10)
[2018-08-26] MEDS: HALOPERIDOL LACTATE 5 MG/ML 1 ML VIAL IM PRN (19:27)
[2018-08-27 00:49] LABS: Anisocytosis Slight; Basophils % (A) 1 %; Eosinophils # (A) 0.1 k/uL (0-0.7); Eosinophils % (A) 2 %; HGB 13.4 gm/dL (13.0-17.5); Lymphocytes % (A) 33 %; MCHC 34.4 g/dL (31.0-37.0); MCV 87.1 fL (80.0-100.0); Mean Platelet Volume 8.2; Monocytes # (A) 0.1 k/uL (0-1.0); Monocytes % (A) 4 %; Neutrophils # (A) 1.9 k/uL (1.3-7.7); Neutrophils % (A) 58 %; RBC 4.47 m/uL (4.30-5.90); RDW 17.7 % (11.5-15.5); WBC 3.2 k/uL (3.8-10.6)
[2018-08-27 00:58] LABS: Platelet Count 43 k/uL (150-450)
[2018-08-27 01:18] LABS: Anion Gap 13 mmol/L; Blood Urea Nitrogen 10 mg/dL (9-20); Calcium 8.6 mg/dL (8.4-10.2); Carbon Dioxide 26 mmol/L (22-30); Chloride 100 mmol/L (98-107); Glucose 117 mg/dL (74-99); Magnesium 1.6 mg/dL (1.6-2.3); Potassium 3.2 mmol/L (3.5-5.1); Sodium 139 mmol/L (137-145)
[2018-08-27] MEDS ORDERED: Magnesium Replacement Protocol 1 EACH MISC MISCELLANE PRN (01:44)
[2018-08-27] MEDS ORDERED: Potassium Replacement Protocol 1 EACH MISC MISCELLANE PRN ×2 (01:44→15:47)
[2018-08-27] MEDS: LORazepam 2 MG/ML INJ IV PRN ×9 (02:26→21:17)
[2018-08-27] MEDS: POTASSIUM CHLORIDE 10 MEQ in WATER FOR INJECTION 1 100ML.BAG IVPB SCH ×8 (03:29→23:13)
[2018-08-27] MEDS: HALOPERIDOL LACTATE 5 MG/ML 1 ML VIAL IM PRN (03:38)
[2018-08-27] MEDS: ASPIRIN 325 MG TAB PO SCH (08:39)
[2018-08-27] MEDS: PANTOPRAZOLE 40 MG TABLET PO SCH (08:39)
[2018-08-27] MEDS: traMADol 50 MG TAB PO SCH ×3 (08:39→23:16)
[2018-08-27] MEDS: HEPARIN SODIUM,PORCINE 5,000 UNIT/ML 1 ML VIAL SQ SCH ×3 (08:39→23:11)
[2018-08-27] MEDS: MAGNESIUM SULFATE-D5W PMX 1 GM in DEXTROSE/WATER 1 100ML.BAG IVPB SCH ×2 (10:05→11:24)
[2018-08-27 13:49] LABS: ALT 77 U/L (21-72); AST 177 U/L (17-59); Albumin 3.2 g/dL (3.5-5.0); Alkaline Phosphatase 162 U/L (38-126); Anion Gap 11 mmol/L; Blood Urea Nitrogen 6 mg/dL (9-20); Calcium 8.5 mg/dL (8.4-10.2); Carbon Dioxide 28 mmol/L (22-30); Chloride 96 mmol/L (98-107); Glucose 137 mg/dL (74-99); Potassium 3.2 mmol/L (3.5-5.1); Sodium 135 mmol/L (137-145); Total Bilirubin 1.9 mg/dL (0.2-1.3); Total Protein 5.7 g/dL (6.3-8.2)
[2018-08-27] MEDS: SODIUM CHLORIDE 0.9% 1,000 ML with POTASSIUM CHLORIDE 20 MEQ, MVI, ADULT NO.4 WITH VIT ... IV SCH ×10 (15:46→22:31)
--- NOTE | 2018-08-27 16:22 | PN ---
PROGRESS NOTE DATE OF SERVICE: 08/27/2018 This 62-year-old gentleman admitted with acute alcohol intoxication and delirium tremens is being closely monitored. The patient is still stuporous. IV access is LFTs are elevated. Patient has multiple other abnormalities. The patient is being closely monitored. Cardiology is following the patient closely. Troponin was found to be 0.053. Past medical history reviewed. Review of systems could not be taken, as the patient is stuporous. CURRENT MEDICATIONS: Reviewed. They include: 1. Potassium protocol. 2. Narcan 0.2 p.r.n. 3. Nitrostat p.r.n. 4. Protonix 40 mg daily. 5. Ultram p.r.n. 6. Ativan p.r.n. 7. CIWA protocol. 8. protocol. 9. Zofran. PHYSICAL EXAMINATION: Patient is alert, oriented x1. Pulse 81, blood pressure 127/85, respirations 16 , temperature 96.7, pulse ox 92% on 4 L. HEENT: Conjunctivae normal. Oral mucosa moist. NECK: No jugular venous distention. No carotid bruit. No lymph node enlargement. CARDIOVASCULAR SYSTEM: S1, S2 muffled. RESPIRATORY SYSTEM: Breath sounds diminished at the bases. A few scattered rhonchi and crackles. ABDOMEN: Soft, non-tender. No mass palpable. LEGS: No edema. No swelling. NERVOUS SYSTEM: Higher functions as mentioned earlier. Moves all 4 limbs. No focal motor or sensory deficit. LYMPHATICS: No lymph node palpable in neck, axillae or groin. SKIN: No ulcer, rash, bleeding. LABS: WBC 3.2, hemoglobin 13.4, sodium 135, potassium 3.2. LFTs are elevated. ASSESSMENT: 1. Acute alcohol intoxication as well as change in mental status, acute metabolic encephalopathy, present on admission. 2. Acute delirium tremens. 3. Agitation. 4. Acute rhabdomyolysis with recent history of multiple falls. 5. Elevated liver enzymes, possibly alcoholic hepatitis. 6. History of alcohol abuse. 7. Troponin elevation, unlikely due to cardiac disease, per Cardiology. 8. History of deep venous thrombosis, pulmonary embolism. 9. History of peripheral vascular disease, status post left above-knee amputation. 10.History of medical debility. 11.Anxiety, depression, panic disorder. 12.Previous history of smoking. 13.Deep venous thrombosis prophylaxis. 14.Hypomagnesemia. 15.Congestive heart failure with chronic systolic dysfunction with ejection fraction around 45% to 50%. RECOMMENDATIONS AND DISCUSSION: I recommend to continue current management, continue symptomatic treatment. Otherwise at this time I recommend DVT prophylaxis. I would recommend repeat labs, potassium supplementation. See orders for details. Guarded prognosis because of multiple complex medical issues. Further recommendations to follow. Cardiology input appreciated. DILIA / LEATHA: [id number] / LILIA
--- NOTE | 2018-08-27 16:37 | PN ---
PROGRESS NOTE DATE OF SERVICE: 08/26/2018 This 62-year-old gentleman admitted with acute alcohol intoxication and delirium tremens is being closely monitored. Patient is on CIWA protocol. Patient is closely monitored at this time. Multiple consultants, including Cardiology, are following the patient closely. Two-D echo with Doppler was done today which showed ejection fraction of 40% to 50%. Past medical history reviewed. Review of systems could not be taken; the patient is stuporous. CURRENT MEDICATIONS: Reviewed. They include: 1. CIWA protocol. 2. Aspirin 325 mg. 3. Haldol. 4. Ativan. 5. Narcan. 6. Nitrostat. 7. Protonix. PHYSICAL EXAMINATION: Patient is stuporous. Pulse is 108, blood pressure 171/95, respirations 16, temperature 97.2, pulse ox 94% on 4 L. HEENT: Conjunctivae normal. Oral mucosa moist. NECK: No jugular venous distention. No carotid bruit. No lymph node enlargement. CARDIOVASCULAR SYSTEM: S1, S2 muffled. RESPIRATORY SYSTEM: Breath sounds diminished at the bases. A few scattered rhonchi and crackles. ABDOMEN: Soft, non-tender. LEGS: No edema. No swelling. NERVOUS SYSTEM: Diffusely weak. LABS: Reviewed. WBC 3.2, sodium is 135, potassium 3.2. ASSESSMENT: 1. Acute severe alcohol intoxication. 2. Acute delirium tremens. 3. Agitation. 4. Acute rhabdomyolysis and recent history of multiple falls. 5. Elevated liver function tests, possibly alcoholic hepatitis. 6. Alcohol abuse. 7. Troponin elevation. 8. History of deep vein thrombosis. 9. Peripheral vascular disease, status post left above-knee amputation. 10.Medical debility. 11.Anxiety, depression, panic disorder. 12.Previous history of smoking. 13.Deep venous thrombosis prophylaxis. RECOMMENDATIONS AND DISCUSSION: I recommend to continue current medication, continue symptomatic treatment. Two-D echo with Doppler. Cardiology consultation. Continue with CIWA protocol. Prognosis guarded because of multiple complex medical issues. Further recommendations to follow. MMODL / IJN: [id number] /
[2018-08-28] MEDS: LORazepam 2 MG/ML INJ IV PRN ×7 (00:41→23:45)
[2018-08-28 06:37] LABS: Anisocytosis Slight; Basophils % (A) 1 %; Eosinophils # (A) 0.1 k/uL (0-0.7); Eosinophils % (A) 2 %; HCT 41.7 % (39.0-53.0); HGB 13.9 gm/dL (13.0-17.5); Lymphocytes % (A) 37 %; MCH 29.3 pg (25.0-35.0); MCHC 33.2 g/dL (31.0-37.0); MCV 88.2 fL (80.0-100.0); Mean Platelet Volume 8.3; Monocytes # (A) 0.1 k/uL (0-1.0); Monocytes % (A) 4 %; Neutrophils # (A) 1.4 k/uL (1.3-7.7); Neutrophils % (A) 54 %; RBC 4.73 m/uL (4.30-5.90); RDW 17.3 % (11.5-15.5); WBC 2.6 k/uL (3.8-10.6)
[2018-08-28 06:46] LABS: Platelet Count 36 k/uL (150-450)
[2018-08-28 06:58] LABS: ALT 67 U/L (21-72); AST 128 U/L (17-59); Albumin 3.2 g/dL (3.5-5.0); Alkaline Phosphatase 156 U/L (38-126); Anion Gap 8 mmol/L; Blood Urea Nitrogen 6 mg/dL (9-20); Calcium 8.5 mg/dL (8.4-10.2); Carbon Dioxide 25 mmol/L (22-30); Chloride 99 mmol/L (98-107); Glucose 111 mg/dL (74-99); Magnesium 1.7 mg/dL (1.6-2.3); Potassium 3.7 mmol/L (3.5-5.1); Sodium 132 mmol/L (137-145); Total Bilirubin 1.5 mg/dL (0.2-1.3); Total Protein 5.7 g/dL (6.3-8.2)
[2018-08-28] MEDS: traMADol 50 MG TAB PO SCH ×3 (08:40→21:15)
[2018-08-28] MEDS: PANTOPRAZOLE 40 MG TABLET PO SCH (08:40)
[2018-08-28] MEDS: ASPIRIN 325 MG TAB PO SCH (08:41)
[2018-08-28] MEDS: HEPARIN SODIUM,PORCINE 5,000 UNIT/ML 1 ML VIAL SQ SCH ×3 (08:41→23:45)
[2018-08-28] MEDS ORDERED: MAGNESIUM SULFATE-D5W PMX 1 GM in DEXTROSE/WATER 1 100ML.BAG IVPB ONE (11:33)
[2018-08-28] MEDS ORDERED: POTASSIUM CHLORIDE ER 20 MEQ TAB.ER PO STA (11:39)
[2018-08-28 11:41] VITALS: BMI 21.9
--- NOTE | 2018-08-28 17:12 | XR ---
EXAMINATION TYPE: XR wrist complete BILATERAL DATE OF EXAM: 08/28/2018 COMPARISON: NONE HISTORY: Bilateral wrist pain TECHNIQUE: 4 views each wrist FINDINGS: I see no fracture nor dislocation. Intercarpal joint spaces are fairly normal. There are no erosions. There is no focal bony destructive process. Metacarpals appear intact. IMPRESSION: Negative bilateral wrist exam. No evidence of inflammatory arthritis.
[2018-08-28] MEDS: SODIUM CHLORIDE 0.9% 1,000 ML with POTASSIUM CHLORIDE 20 MEQ, MVI, ADULT NO.4 WITH VIT ... IV SCH ×5 (20:28)
--- NOTE | 2018-08-28 20:29 | PN ---
PROGRESS NOTE DATE OF SERVICE: 08/28/2018 This 62-year-old gentleman admitted with acute alcohol intoxication also had change in mental status. Patient also had acute delirium tremens. Patient was slightly agitated. The patient being closely monitored. Cardiology following the patient closely. 2D echo with Doppler was done which showed ejection fraction of 45-50 percent at this time. The patient being closely monitored. PAST MEDICAL HISTORY: Reviewed. REVIEW OF SYSTEMS: Could not be taken. CURRENT MEDICATIONS ARE: Reviewed and include: 1. Tylenol 650 q.6h p.r.n. 2. Aspirin 320 mg daily. 3. Haldol 5 mg q.6h p.r.n. 4. Heparin 5000 subcu q8. 5. Ativan 1 mg q.2h p.r.n. 6. Potassium, magnesium protocol. 7. Narcan. 9. Zofran. PHYSICAL EXAM: Patient is alert, oriented x1, pulse 94, blood pressure 136/92, respiration 18, temperature 97.9, pulse ox 94% on room air. HEENT: Conjunctivae normal. NECK: No jugular venous distention. CARDIOVASCULAR: S1, S2 muffled. RESPIRATORY: Breath sounds diminished in the bases. Scattered rhonchi and crackles. ABDOMEN: Soft, nontender. No mass palpable. LEGS: No edema. No swelling. NERVOUS SYSTEM: Higher functions as mentioned earlier. Moves all four limbs. No focal deficits. Lymphatics: No lymph nodes palpable in the neck, axillae or groin. SKIN: No ulcer, rash or bleeding. LAB STUDIES: WBC 2.7, hemoglobin 13.2, sodium 132, and total bilirubin 1.5. ASSESSMENT: 1. Acute alcohol intoxication as well as change in mental status acute metabolic encephalopathy present on admission. 2. Acute delirium tremens. 3. Agitation. 4. Acute rhabdomyolysis, history of multiple falls. 5. Elevated liver enzymes, possible alcoholic hepatitis, history EtOH abuse. 6. Troponin elevation, likely due to cardiac cause per Cardiology. 7. History of deep vein thrombosis, pulmonary embolism. 8. History of peripheral vascular disease status post left above-knee amputation. 9. History of medical debility. 10.Anxiety, depression, panic disorder. 11.Previous history of smoking. 12.Deep vein thrombosis prophylaxis. 13.Hypomagnesia. 14.Congestive heart failure with chronic systolic dysfunction ejection fraction 45-50 percent with possible alcoholic cardiomyopathy. RECOMMENDATIONS AND DISCUSSION: Continue current medications, management and symptomatic treatment. Repeat labs. Continue with monitoring fluid and electrolytes balance closely. Continue with CIWA protocol. Supplement vitamins. Guarded prognosis. Further recommendations to follow. MMKHRISL / IJN: [id number] / MTDD
[2018-08-28] MEDS ORDERED: DOCUSATE 100 MG CAP PO PRN (20:59)
[2018-08-28] MEDS: SENNOSIDES-DOCUSATE SODIUM 1 EACH TAB PO SCH (21:14)
[2018-08-29 07:07] LABS: Anisocytosis Slight; Basophils # (A) 0.1 k/uL (0-0.2); Basophils % (A) 2 %; Eosinophils # (A) 0.1 k/uL (0-0.7); Eosinophils % (A) 2 %; HCT 41.5 % (39.0-53.0); HGB 14.1 gm/dL (13.0-17.5); Lymphocytes % (A) 35 %; MCH 29.7 pg (25.0-35.0); MCV 87.2 fL (80.0-100.0); Mean Platelet Volume 8.3; Monocytes # (A) 0.2 k/uL (0-1.0); Monocytes % (A) 6 %; Neutrophils # (A) 1.5 k/uL (1.3-7.7); Neutrophils % (A) 54 %; RBC 4.76 m/uL (4.30-5.90); RDW 17.5 % (11.5-15.5); WBC 2.8 k/uL (3.8-10.6)
[2018-08-29 07:23] LABS: Platelet Count 48 k/uL (150-450)
[2018-08-29 07:59] LABS: ALT 81 U/L (21-72); AST 164 U/L (17-59); Albumin 3.2 g/dL (3.5-5.0); Alkaline Phosphatase 156 U/L (38-126); Anion Gap 10 mmol/L; Blood Urea Nitrogen 5 mg/dL (9-20); Calcium 8.8 mg/dL (8.4-10.2); Carbon Dioxide 23 mmol/L (22-30); Chloride 103 mmol/L (98-107); Glucose 87 mg/dL (74-99); Magnesium 1.8 mg/dL (1.6-2.3); Potassium 3.8 mmol/L (3.5-5.1); Sodium 136 mmol/L (137-145); Total Bilirubin 1.3 mg/dL (0.2-1.3); Total Protein 5.8 g/dL (6.3-8.2)
[2018-08-29] MEDS: LORazepam 2 MG/ML INJ IV PRN ×4 (08:04→22:28)
[2018-08-29] MEDS: traMADol 50 MG TAB PO SCH ×3 (10:27→20:37)
[2018-08-29] MEDS: PANTOPRAZOLE 40 MG TABLET PO SCH (10:27)
[2018-08-29] MEDS: ASPIRIN 325 MG TAB PO SCH (10:28)
[2018-08-29] MEDS: SENNOSIDES-DOCUSATE SODIUM 1 EACH TAB PO SCH ×2 (10:28→20:37)
[2018-08-29] MEDS: HEPARIN SODIUM,PORCINE 5,000 UNIT/ML 1 ML VIAL SQ SCH ×3 (10:28→23:12)
[2018-08-29] MEDS ORDERED: IPRATROPIUM-ALBUTEROL 3 ML NEB INHALATION PRN (16:27)
[2018-08-29] MEDS ORDERED: POTASSIUM CHLORIDE ER 20 MEQ TAB.ER PO STA (16:52)
[2018-08-29] MEDS ORDERED: MAGNESIUM SULFATE-D5W PMX 1 GM in DEXTROSE/WATER 1 100ML.BAG IVPB ONE (16:54)
--- NOTE | 2018-08-29 18:44 | PN ---
PROGRESS NOTE DATE OF SERVICE: 08/29/2018 This 62-year-old gentleman with alcoholic intoxication also had change in mental status. Patient is confused. Patient also. Hand x-rays done yesterday showed no fracture, inflammation. No chest pain. No palpitations. No fever. EXAM: Alert and oriented x1. Pulse 86, blood pressure 124/80, respiration 18, temperature 97.4, pulse ox 94% on room air. HEENT: Conjunctivae normal. Oral mucosa moist. NECK: No jugular venous distention. No lymph node enlargement. CARDIOVASCULAR: S1, S2. RESPIRATORY: Diminished breath sounds at the bases. A few rhonchi, no crackles. ABDOMEN: Soft, nontender. LEGS: Status post left above knee amputation. NERVOUS SYSTEM: No focal deficits. LABS: WBC 22.8, platelets n. Sodium 136. Other labs are noted. ASSESSMENT: 1. Acute alcohol intoxication as well as change in mental status with acute metabolic encephalopathy, present on admission. 2. Acute delirium tremens. 3. Agitation. 4. Acute abdomen, history of multiple falls. 5. Elevated liver enzymes, possible alcoholic hepatitis. 6. History of EtOH abuse. 7. Troponin elevation, likely due to noncardiac causes per Cardiology. 8. History of DVT, pulmonary embolism. 9. History of peripheral vascular disease status post left above-knee amputation. 10.History of medical debility. 11.Anxiety, depression, panic disorder. 12.Previous history of smoking. 13.History of DVT. 14.Hypomagnesemia. 15.History of congestive heart failure with chronic systolic dysfunction, ejection fraction 40-50 percent with possible alcoholic cardiomyopathy. 16.NO CODE, NO CPR, NO VENT. RECOMMENDATIONS AND DISCUSSION: I recommend to continue current medications, continue to monitor, continue symptomatic treatment. Continue with the rest of the medications. I would also monitor lytes. I would also recommend addition of bronchodilator treatment also. The prognosis is guarded because of multiple complex medical issues as mentioned earlier. We will continue to monitor. Further recommendations to follow. MMODL / IJN: [id number] / LILIA
[2018-08-29] MEDS: SODIUM CHLORIDE 0.9% 1,000 ML with POTASSIUM CHLORIDE 20 MEQ, MVI, ADULT NO.4 WITH VIT ... IV SCH ×5 (20:23)
[2018-08-29] MEDS: MAGNESIUM SULFATE-D5W PMX 1 GM in DEXTROSE/WATER 1 100ML.BAG IVPB SCH ×2 (20:24→22:27)
[2018-08-29] MEDS: IPRATROPIUM-ALBUTEROL 3 ML NEB INHALATION SCH (20:37)
[2018-08-30] MEDS: LORazepam 2 MG/ML INJ IV PRN ×4 (04:48→23:32)
[2018-08-30] MEDS: IPRATROPIUM-ALBUTEROL 3 ML NEB INHALATION SCH ×3 (07:58→19:32)
[2018-08-30 08:15] LABS: ALT 100 U/L (21-72); AST 186 U/L (17-59); Albumin 3.1 g/dL (3.5-5.0); Alkaline Phosphatase 137 U/L (38-126); Anion Gap 10 mmol/L; Blood Urea Nitrogen 4 mg/dL (9-20); Calcium 8.6 mg/dL (8.4-10.2); Carbon Dioxide 20 mmol/L (22-30); Chloride 107 mmol/L (98-107); Glucose 77 mg/dL (74-99); Potassium 3.6 mmol/L (3.5-5.1); Sodium 137 mmol/L (137-145); Total Bilirubin 1.2 mg/dL (0.2-1.3); Total Protein 5.7 g/dL (6.3-8.2)
[2018-08-30 08:28] LABS: Anisocytosis Slight; Basophils % (A) 1 %; Eosinophils # (A) 0.1 k/uL (0-0.7); Eosinophils % (A) 3 %; HCT 40.8 % (39.0-53.0); HGB 13.1 gm/dL (13.0-17.5); Lymphocytes # (A) 0.9 k/uL (1.0-4.8); Lymphocytes % (A) 34 %; MCH 28.4 pg (25.0-35.0); MCV 88.7 fL (80.0-100.0); Mean Platelet Volume 7.8; Monocytes # (A) 0.2 k/uL (0-1.0); Monocytes % (A) 9 %; Neutrophils # (A) 1.3 k/uL (1.3-7.7); Neutrophils % (A) 51 %; Platelet Count 72 k/uL (150-450); RDW 18.5 % (11.5-15.5); WBC 2.7 k/uL (3.8-10.6)
[2018-08-30] MEDS: traMADol 50 MG TAB PO SCH (09:58)
[2018-08-30] MEDS: PANTOPRAZOLE 40 MG TABLET PO SCH (09:58)
[2018-08-30] MEDS: ASPIRIN 325 MG TAB PO SCH (09:59)
[2018-08-30] MEDS: SENNOSIDES-DOCUSATE SODIUM 1 EACH TAB PO SCH ×2 (09:59→19:55)
[2018-08-30] MEDS: HEPARIN SODIUM,PORCINE 5,000 UNIT/ML 1 ML VIAL SQ SCH ×3 (09:59→23:31)
[2018-08-30] MEDS: SODIUM CHLORIDE 0.9% 1,000 ML with POTASSIUM CHLORIDE 20 MEQ, MVI, ADULT NO.4 WITH VIT ... IV SCH ×10 (10:00→11:39)
--- NOTE | 2018-08-30 12:29 | P.DS ---
Providers Date of admission: 08/25/18 17:24 Expected date of discharge: 08/30/18 Attending physician: Lora Hernández Consults: 08/26/18 01:29 Consult Physician Routine Consulting Provider: Karolyn Zimmerman Consult Reason/Comments: + trops Do you want consulting provider notified?: Yes Primary care physician: [facility] Hospital Course: Final DIagnoses: Acute alcohol intoxication with change in mental status, acute metabolic encephalopathy, present on admission Acute DTs Agitation Acute rhabdomyolysis and recent history of multiple falls. Elevated liver enzymes with possible alcohol hepatitis Alcohol abuse Troponin elevation likely due to demand mismatch and rhabdomyolysis, noncardiac as per cardiology History of DVT/PE Peripheral vascular disease status post left above-knee amputation Medical debility. Currently wheelchair-bound. Anxieties, depression and panic disorder Previous history of smoking No code, no CPR, no vent Hospital course:Patient is a 62-year-old male with a known history of hypertension, history of DVT/PE, peripheral vascular disease with history of left above-knee amputation and also history of gastric ulcers presented to ER with complaints of acute alcohol intoxication. Patient was brought to the hospital by EMS. Patient lives by himself and is unable to take care of him. Patient is also complaining of back pain and leg pain and is requesting pain medications. Patient does drink on daily basis. EMS was called by his friend as the patient was found with covered in feces. Patient has been having multiple falls recently. Patient is currently intoxicated. Otherwise no complaints of chest pain or shortness of breath. No fever no chills. No recent illnesses as per patient. CT cervical spine showed no fracture or dislocation. Degenerative changes noted. CT head showed no acute intracranial hemorrhage. No mass effect or midline shift. There is is related atrophic changes. chest x-ray showed no acute cardiopulmonary process Patient was found have elevated AST ALT and bilirubin level. CPK level is elevated at 1437 Alcohol level greater than 400. Troponin 0.039 and 0.041 Maintained on IV fluid hydration,CIWA protocol. Evaluated by cardiology. Significant clinical improvement. Patient is being discharged to [facility] subacute rehab in a stable condition with guarded prognosis. EXAMINATION: GENERAL,no acute distress, awake alert, oriented X1, plesantly confused. CHEST EXAMINATION: Bibasilar diminished air entry. Lung oropeza clear to auscultation and percussion. CARDIAC: Normal S1, S2 with no gallops. No murmurs ABDOMEN: Soft. Bowel sounds normal. Neurologically No focal deficits noted The impression and plan of care has been dictated as directed. : I performed a history and examination of this patient, discussed the same with the dictator. I agree with the dictator's note ,documented as a scribe. Any additional findings or plans will be noted. Time taken: 35 minutes Patient Condition at Discharge: Stable Plan - Discharge Summary Discharge Rx Participant: No New Discharge Prescriptions: New Acetaminophen Tab [Tylenol] 650 mg PO Q6HR PRN tab PRN Reason: Mild Pain Or Fever > 100.5 Aspirin EC [Ecotrin Low Dose] 81 mg PO DAILY #1 tablet. Docusate [Colace] 100 mg PO DAILY PRN cap PRN Reason: Constipation Folic Acid 1 mg PO DAILY #1 tablet Ipratropium-Albuterol Nebulize [Duoneb 0.5 mg-3 mg/3 ml Soln] 3 ml INHALATION RT-TID ampul.neb Ipratropium-Albuterol Nebulize [Duoneb 0.5 mg-3 mg/3 ml Soln] 3 ml INHALATION RT-TID PRN ampul.neb PRN Reason: Shortness Of Breath Or Wheezing Multivitamins, Thera [Multivitamin (formulary)] 1 tab PO DAILY #1 tablet Pantoprazole [Protonix] 40 mg PO DAILY tablet.dr Martin-Docusate Sodium [Senokot-S] 2 each PO BID tab Thiamine [Vitamin B-1] 100 mg PO DAILY #1 tablet LORazepam [Ativan] 1 mg PO TID PRN 3 Days #9 tab PRN Reason: Anxiety Discharge Medication List Acetaminophen Tab [Tylenol] 650 mg PO Q6HR PRN tab 08/30/18 [Rx] Aspirin EC [Ecotrin Low Dose] 81 mg PO DAILY #1 tablet. 08/30/18 [Rx] Docusate [Colace] 100 mg PO DAILY PRN cap 08/30/18 [Rx] Folic Acid 1 mg PO DAILY #1 tablet 08/30/18 [Rx] Ipratropium-Albuterol Nebulize [Duoneb 0.5 mg-3 mg/3 ml Soln] 3 ml INHALATION RT -TID ampul.neb 08/30/18 [Rx] Ipratropium-Albuterol Nebulize [Duoneb 0.5 mg-3 mg/3 ml Soln] 3 ml INHALATION RT -TID PRN ampul.neb 08/30/18 [Rx] LORazepam [Ativan] 1 mg PO TID PRN 3 Days #9 tab 08/30/18 [Rx] Multivitamins, Thera [Multivitamin (formulary)] 1 tab PO DAILY #1 tablet [Rx] Pantoprazole [Protonix] 40 mg PO DAILY tablet. 08/30/18 [Rx] Sennosides-Docusate Sodium [Senokot-S] 2 each PO BID tab 08/30/18 [Rx] Thiamine [Vitamin B-1] 100 mg PO DAILY #1 tablet 08/30/18 [Rx] Follow up Appointment(s)/Referral(s): Bennett Santamaria MD [STAFF PHYSICIAN] - 3 Days Activity/Diet/Wound Care/Special Instructions: [facility] Diet: cardiac Activity: as tolerated CBC,CMP in 3 days
--- NOTE | 2018-08-30 20:40 | PN ---
PROGRESS NOTE DATE OF SERVICE: 08/30/2018 This 62-year-old gentleman who was admitted with alcohol intoxication also had delirium tremens and multiple other complex medical issues. PT/OT is evaluating the patient for possible ECF rehab. No chest pain. No palpitations. No fever. Hand x-ray is normal. On exam, alert and oriented x2. Pulse 84, blood pressure 138/85, respirations 16, temperature 97.4, pulse ox 94% on room air. HEENT: Conjunctivae normal. NECK: No jugular venous distention. CARDIOVASCULAR SYSTEM: S1, S2 muffled. RESPIRATORY SYSTEM: Breath sounds diminished at the bases. No rhonchi. No crackles. ABDOMEN: Soft, non-tender. LEGS: No edema. No swelling. NERVOUS SYSTEM: Diffusely weak. LABS: WBC 2.7, hemoglobin 13.1. Platelets are 72. AST and ALT are noted. ASSESSMENT: 1. Acute alcohol intoxication as well as change in mental status with acute metabolic encephalopathy, present on admission. 2. Acute delirium tremens. 3. Agitation. 4. History of multiple falls. 5. Elevated liver enzymes, possibly alcoholic hepatitis. 6. History of EtOH abuse. 7. Troponin elevation, most likely due to non-cardiac causes, per Cardiology. 8. History of deep venous thrombosis, pulmonary embolism. 9. History of peripheral vascular disease, status post left above-knee amputation. 10.History of medical debility. 11.Anxiety, depression, panic disorder. 12.Previous history of smoking. 13.History of deep vein thrombosis. 14.Hypomagnesemia. 15.History of congestive heart failure with chronic systolic dysfunction, ejection fraction 40% to 50%, with possible alcoholic cardiomyopathy. 16.NO CODE, NO CPR, NO VENT. RECOMMENDATIONS AND DISCUSSION: I recommend to continue current medication, continue symptomatic treatment. PT/OT evaluation. Possible ECF rehab. Prognosis guarded because of multiple complex medical issues. Repeat labs. See orders for further details. Further recommendations to follow. MMODL / IJN: [id number] /
[2018-08-31] MEDS: LORazepam 2 MG/ML INJ IV PRN (04:34)
[2018-08-31] MEDS: IPRATROPIUM-ALBUTEROL 3 ML NEB INHALATION SCH ×2 (08:12→12:22)
[2018-08-31] MEDS: SENNOSIDES-DOCUSATE SODIUM 1 EACH TAB PO SCH (08:26)
[2018-08-31] MEDS: PANTOPRAZOLE 40 MG TABLET PO SCH (08:35)
[2018-08-31] MEDS: HEPARIN SODIUM,PORCINE 5,000 UNIT/ML 1 ML VIAL SQ SCH ×2 (08:35→15:27)
[2018-08-31] MEDS: ASPIRIN 325 MG TAB PO SCH (08:35)
[2018-08-31 08:36] LABS: Anisocytosis Slight; Basophils # (A) 0.1 k/uL (0-0.2); Basophils % (A) 2 %; Eosinophils # (A) 0.1 k/uL (0-0.7); Eosinophils % (A) 2 %; HCT 40.2 % (39.0-53.0); HGB 13.2 gm/dL (13.0-17.5); Lymphocytes # (A) 1.1 k/uL (1.0-4.8); Lymphocytes % (A) 36 %; MCH 29.4 pg (25.0-35.0); MCHC 32.8 g/dL (31.0-37.0); MCV 89.8 fL (80.0-100.0); Mean Platelet Volume 7.9; Monocytes # (A) 0.3 k/uL (0-1.0); Monocytes % (A) 9 %; Neutrophils # (A) 1.4 k/uL (1.3-7.7); Neutrophils % (A) 47 %; RBC 4.47 m/uL (4.30-5.90); RDW 18.9 % (11.5-15.5); WBC 2.9 k/uL (3.8-10.6)
[2018-08-31 08:39] LABS: Platelet Count 87 k/uL (150-450)
[2018-08-31 08:51] LABS: ALT 104 U/L (21-72); AST 151 U/L (17-59); Albumin 3.2 g/dL (3.5-5.0); Alkaline Phosphatase 130 U/L (38-126); Anion Gap 8 mmol/L; Blood Urea Nitrogen 7 mg/dL (9-20); Carbon Dioxide 21 mmol/L (22-30); Chloride 109 mmol/L (98-107); Glucose 91 mg/dL (74-99); Potassium 3.9 mmol/L (3.5-5.1); Sodium 138 mmol/L (137-145); Total Protein 5.9 g/dL (6.3-8.2)
[2018-08-31] MEDS ORDERED: NICOTINE 21MG/24HR PATCH TRANSDERM SCH (10:15)
[2018-08-31] MEDS: SODIUM CHLORIDE 0.9% 1,000 ML with POTASSIUM CHLORIDE 20 MEQ, MVI, ADULT NO.4 WITH VIT ... IV SCH ×5 (11:50)
[2018-08-31 11:51] VITALS: BP 133/84; PULSE 67; RESP 17
[2018-08-31] MEDS ORDERED: LORazepam 1 MG TAB PO PRN (14:04)
[2018-08-31 16:06] VITALS: TEMP 97.5
--- NOTE | 2018-09-02 22:49 | P.PN ---
Subjective Progress Note Date: 08/26/18 Progress note being dictated for Dr. Hernández Interval history:Patient is a 62-year-old male with a known history of hypertension, history of DVT/PE, peripheral vascular disease with history of left above-knee amputation and also history of gastric ulcers presented to ER with complaints of acute alcohol intoxication. Patient was brought to the hospital by EMS. Patient lives by himself and is unable to take care of him. Patient is also complaining of back pain and leg pain and is requesting pain medications. Patient does drink on daily basis. EMS was called by his friend as the patient was found with covered in feces. Patient has been having multiple falls recently. Patient is currently intoxicated. Otherwise no complaints of chest pain or shortness of breath. No fever no chills. No recent illnesses as per patient. CT cervical spine showed no fracture or dislocation. Degenerative changes noted. CT head showed no acute intracranial hemorrhage. No mass effect or midline shift. There is is related atrophic changes. chest x-ray showed no acute cardiopulmonary process Patient was found have elevated AST ALT and bilirubin level. CPK level is elevated at 1437 Alcohol level greater than 400. Troponin 0.039 and 0.041 08/26/2018 active DTs, requiring both Ativan and Haldol. Patient states he drinks 1 gallon of rum per day. Troponin 0.039, 0.055, 0.053. echo pending. Maintained on IV fluid hydration, CK, LFTs trending down. Receiving potassium supplements for potassium 3.3. Afebrile. Objective - Vital Signs Vital signs: Vital Signs Temp 97.3 F L 08/30/18 12:00 Pulse 88 08/30/18 12:00 Resp 16 08/30/18 12:00 BP 117/79 08/30/18 12:00 Pulse Ox 94 L 08/30/18 12:00 Intake & Output 08/29/18 08/30/18 08/30/18 18:59 06:59 18:59 Intake Total 120 100 300 Balance 120 100 300 Weight 67.3 kg Intake: IV 60 NS @10mls 60 Intake, IV Titration 100 Amount Magnesium Sulfate-D5w Pmx 100 1 gm In Dextrose/Water 1 100ml.bag @ 100 mls/hr IVPB Q1H [facility] Rx#: [id number] Oral 120 240 Other: Voiding Method Diaper Diaper Diaper Incontinent Incontinent Incontinent # Voids 3 1 1 - Exam Patient is lying in the bed comfortably, no acute distress, awake alert but confused. Intoxicated. HEENT: Normocephalic. Neck is supple. Pupils reactive. Nostrils clear. Oral mucosa dry Neck reveals no JVD, carotid bruits, or thyromegaly. CHEST EXAMINATION: Trachea is central. Symmetrical expansion. Bibasilar diminished air entry. Lung oropeza clear to auscultation and percussion. CARDIAC: Normal S1, S2 with no gallops. No murmurs ABDOMEN: Soft. Bowel sounds normal. No organomegaly. No abdominal bruits. Extremities: reveal no edema. No clubbing or cyanosis. Left above-knee amputation. Neurologically awake, alert, oriented but confused. well-coordinated movements. No focal deficits noted Skin: No rash or skin lesions. Psychiatric: Noncooperative. Musculoskeletal: No joint swelling or deformity. Normal range of motion except the above. - Labs CBC & Chem 7: 08/31/18 08:04 08/31/18 08:04 Labs: Abnormal Lab Results - Last 24 Hours (Table) 08/30/18 08/30/18 Range/Units 07:28 07:28 WBC 2.7 L (3.8-10.6) k/uL RDW 18.5 H (11.5-15.5) % Plt Count 72 L (150-450) k/uL Lymphocytes # 0.9 L (1.0-4.8) k/uL Carbon Dioxide 20 L (22-30) mmol/L BUN 4 L (9-20) mg/dL Creatinine 0.30 L (0.66-1.25) mg/dL AST 186 H (17-59) U/L ALT 100 H (21-72) U/L Alkaline Phosphatase 137 H (38-126) U/L Total Protein 5.7 L (6.3-8.2) g/dL Albumin 3.1 L (3.5-5.0) g/dL Assessment and Plan Assessment: Acute severe alcohol intoxication, with change in mental status, acute metabolic encephalopathy, present on admission -Acute DTs Agitation Acute rhabdomyolysis and recent history of multiple falls. Elevated liver enzymes with possible alcohol hepatitis Alcohol abuse Troponin elevation , unlikely due to cardiac disease as per cardiology. History of DVT/PE Peripheral vascular disease status post left above-knee amputation Medical debility. Currently wheelchair-bound. Anxieties, depression and panic disorder Previous history of smoking Hypomagnesemia Congestive heart failure and chronic systolic dysfunction, EF 45-50% Plan: Continue on current medication regime ,monitoring and symptomatic treatment. Maintain CIWA protocol, prn Haldol, IV fluid hydration. GI and DVT prophylaxis. Echo pending. Electrolyte supplementation as ordered .Close monitoring of LFTs, CK. Electrolytes. Evaluated by cardiology with no aggressive interventions recommended at this time. The impression and plan of care has been dictated as directed. : I performed a history and examination of this patient, discussed the same with the dictator. I agree with the dictator's note ,documented as a scribe. Any additional findings or plans will be noted.
== END 2018-08-31 17:30 | DRG 896 ==
LOC: EC 13:38 → 3SCARD 17:24 → 3NMEDONC 08-31 07:07
PROVIDERS: ADMIT Internal Medicine; ATTEND Internal Medicine
DX: F10.121 Alcohol abuse with intoxication delirium (principal); G93.41 Metabolic encephalopathy; I50.22 Chronic systolic (congestive) heart failure; M62.82 Rhabdomyolysis; I42.6 Alcoholic cardiomyopathy; E83.42 Hypomagnesemia; K70.10 Alcoholic hepatitis without ascites; F17.200 Nicotine dependence, unspecified, uncomplicated; F32.9 Major depressive disorder, single episode, unspecified; F41.0 Panic disorder [episodic paroxysmal anxiety]; I11.0 Hypertensive heart disease with heart failure; I73.9 Peripheral vascular disease, unspecified; R29.6 Repeated falls; M54.2 Cervicalgia; M54.9 Dorsalgia, unspecified; M79.606 Pain in leg, unspecified; R77.9 Abnormality of plasma protein, unspecified; Z99.3 Dependence on wheelchair; Z91.81 History of falling; Z89.612 Acquired absence of left leg above knee; Z87.11 Personal history of peptic ulcer disease; Z86.718 Personal history of other venous thrombosis and embolism; Z86.711 Personal history of pulmonary embolism; Z86.14 Personal history of Methicillin resistant Staphylococcus aureus infection; Z66 Do not resuscitate; Z81.8 Family history of other mental and behavioral disorders; Z80.9 Family history of malignant neoplasm, unspecified
CPT/HCPCS: 36415; 70450; 71046; 72125; 80048; 80053; 80061; 80320; 82150; 82550; 82553; 83690; 83735; 83880; 84484; 85025; 85379; 85610; 85730; 93005; 93306; 96360; 96361; 96372; 99285